=== PATIENT | male | born 1935 | race Caucasian/White ===

== ENCOUNTER 2018-10-19 08:34 | Inpatient (IN) ==
[2018-10-19] MEDS ORDERED: 0.9 % Sodium Chloride 1,000 ML IVC ONE (08:56)
[2018-10-19 09:33] LABS: Basophils % 0.4 %; Eosinophils # 0.2 K/mcL (0.0-0.6); Eosinophils % 2.1 %; Hematocrit 47.4 % (37.5-50.1); Hemoglobin 14.2 g/dL (12.9-16.9); Immature Granulocytes % 0.4 % (0-4); Lymphocytes # 1.3 K/mcL (0.6-4.6); Lymphocytes % 17.5 %; Mean Corpuscular Hemoglobin 30.5 pg (28.0-33.3); Mean Corpuscular Volume 101.7 fL (83.0-100.0); Mean Platelet Volume 10.6 fL (9.4-12.4); Monocytes # 0.5 K/mcL (0.0-1.3); Neutrophils # 5.5 K/mcL (1.6-8.9); Platelet Count 158 K/mcL (140-400); Red Blood Count 4.66 M/mcL (4.19-5.50); Red Cell Distribution Width 17.7 % (11.5-14.5); Segmented Neutrophils % 73.6 %
--- NOTE | 2018-10-19 09:52 | Emergency Department Note ---
Disposition Clinical Impression: Weakness Disposition: Admitted As Inpatient Condition: Good Referrals: Demetris Olivier [Primary Care Provider] - Forms: ED Satisfaction Letter Time of Disposition: 13:02 General Adult HPI - General Chief complaint: ED Dizziness Stated complaint: HARIS Hypotension Time Seen by Provider: 10/19/18 08:40 Source: patient Mode of arrival: private vehicle Limitations: no limitations Nursing Notes Reviewed: Yes Vital Signs Reviewed: Yes - History of Present Illness HPI Narrative: 83-year-old male that was on his we will cardiology appointment this morning when he checked him and inject his blood pressure was low. While they were doing their intake history he told them he had several days of dark and tarry stools. He also reported feeling weak and "without power". Cardiology sent him to the emergency department for further evaluation. Pt reports that he has recently started taking xanax again after not being on it for a few weeks. He reports significant personal stressors with illnesses in his other family members. Pain Scale: 0 - Related Data Home Medications Medication Instructions Recorded Confirmed Carvedilol 12.5 mg PO BID 05/22/18 05/22/18 Digoxin [Lanoxin] 0.125 mg PO DAILY 05/22/18 05/22/18 Donepezil [Aricept] 10 mg PO HS 05/22/18 05/22/18 Finasteride [Proscar] 5 mg PO DAILY 05/22/18 05/22/18 Fluticasone Propionate Nasal 2 spray NS DAILY PRN 05/22/18 05/22/18 [Flonase] Hydrocodone/Acetaminophen [[place] 1 tab PO Q6H PRN 05/22/18 05/22/18 5-325 Tablet] Lisinopril [Zestril] 10 mg PO DAILY 05/22/18 05/22/18 Mupirocin [Bactroban Oint] 22 applic TP TID PRN 05/22/18 05/22/18 Potassium Chloride [K-Tab ER] 10 meq PO DAILY 05/22/18 05/22/18 Simvastatin [Zocor] 80 mg PO DAILY 05/22/18 05/22/18 Previous Rx's Medication Instructions Recorded Aspirin 81 mg PO DAILY #30 tab.chew 05/22/18 Allergies Allergy/AdvReac Type Severity Reaction Status Date / Time No Known Allergies Allergy Verified 05/22/18 11:50 Review of Systems: All systems ED: reviewed and negative except as stated. Constitutional: Denies: fever, chills ENT ED: Denies: ear pain, throat pain Cardiovascular: Denies: chest pain, palpitations Respiratory: Denies: cough, Reports: dyspnea Gastrointestinal: Denies: abdominal pain, nausea, vomiting, diarrhea, constipation Genitourinary: Denies: urgency, dysuria, frequency Musculoskeletal: Denies: back pain, neck pain Integumentary: Denies: rash, abrasion Neurological: Denies: headache, numbness, paresthesias Reports: weakness Psychiatric: Denies: depression Reports: anxiety Endocrine: Denies: fatigue, heat or cold intolerance Hematological/Lymphatic: Denies: easy bleeding, easy bruising Allergic/Immunologic: Denies: facial swelling, urticaria Past Medical History - Past Medical History Attestation: Yes The following information was validated with the patient. Medical history: Reports: atrial fibrillation, CHF, hypertension, other Surgical history: Reports: knee replacement, orthopedic, other, pacemaker Psychiatric history: Reports: anxiety, depression - Social History Smoking Status: Former smoker Smokeless Tobacco Status: Yes Alcohol use: Reports: occasionally Drug use: Reports: none Physical Exam General: No acute distress. Well developed, well nourished. Head: atraumatic, normocephalic. ENT: No conjunctival injection, no scleral icterus, no conjunctival pallor. PERRLA. EOMI. Oropharynx non- erythematous. mucous membranes moist. Neuro: No focal deficits, no speech deficit, no facial droop, mentating well. BUE/BLE Str 5/5. Pulm: Lungs CTAB A/P. No wheezes, rales, ronchi. Cardio: RRR no m/r/g. Chest not tender to palpation. Abd: Soft, non-distended. Normoactive bowel sounds. Non-tender to palpation. No guarding. Non rigid. Extremities: Radial pulses 2+ margy, dorsalis pedis/posterior tibialis 2+ margy. No LE edema. No cyanosis, clubbing. Skin: warm, dry, intact. No rashes. Psych: Appropriate mood and affect. Answers questions appropriately. Cooperative with exam. - General Limitations: no limitations General appearance: alert, in no apparent distress Course Course Narrative: Ddx includes but is not limited to: GIB, hypotension, dehydration, infection Workup will include: 2 large bore IV, cardiac monitoring, EKG, supplemental oxygen, CBC, CMP, troponin, type & screen, hemoccult, CXR Vital Signs Temperature 97.6 F 10/19/18 08:35 Pulse Rate 68 10/19/18 08:35 Respiratory Rate 16 10/19/18 08:35 Blood Pressure 93/62 10/19/18 08:35 O2 Sat by Pulse Oximetry 96 10/19/18 08:35 Temperature 97.6 F 10/19/18 08:35 Pulse Rate 60 10/19/18 12:00 Respiratory Rate 21 10/19/18 12:00 Blood Pressure 137/82 10/19/18 12:00 O2 Sat by Pulse Oximetry 96 10/19/18 12:00 Oxygen Delivery Oxygen Delivery Nasal Cannula Medical Decision Making - MDM Narrative Medical decision making narrative: Patient's lab work did not reveal a leukocytosis, head CT was negative for acute intracranial findings, patient's hemoglobin was over 14. Patient's blood pressure improved after administration of 1 L of normal saline to 137/62. Hemoccult was negative for blood. Patient stated that he was feeling a little better, however he was still feeling somewhat weak. Initially patient wanted to go home however when the nurse went to ambulate him he changed his mind and said "I really would like to figure out why I am so weak." Patient was admitted to the hospitalist doctor Patricia, who agreed to admit the patient to his service.Patient was given an opportunity to ask questions at bedside and all of their concerns were addressed. Patient verbalized understanding and agreement with plan of care. Pt remained stable while in the department. - Medical Records Medical records reviewed: Yes I reviewed the patient's medical records. - Lab Data Lab results reviewed: Yes I reviewed the patient's lab results. Result diagrams: 10/19/18 09:16 10/19/18 09:16 Lab Results 10/19/18 10/19/18 10/19/18 Range/Units 09:16 09:16 09:16 WBC 7.5 (4.3-11.1) K/mcL RBC 4.66 (4.19-5.50) M/mcL Hgb 14.2 (12.9-16.9) g/dL Hct 47.4 (37.5-50.1) % MCV 101.7 H (83.0-100.0) fL MCH 30.5 (28.0-33.3) pg MCHC 30.0 L (31.6-35.5) g/dL RDW 17.7 H (11.5-14.5) % Plt Count 158 (140-400) K/mcL MPV 10.6 (9.4-12.4) fL Immature Gran % 0.4 (0-4) % Seg Neutrophils % 73.6 % Lymphocytes % 17.5 % Monocytes % 6.0 % Eosinophils % 2.1 % Basophils % 0.4 % Neutrophils # 5.5 (1.6-8.9) K/mcL Lymphocytes # 1.3 (0.6-4.6) K/mcL Monocytes # 0.5 (0.0-1.3) K/mcL Eosinophils # 0.2 (0.0-0.6) K/mcL Basophils # 0.0 (0.0-0.2) K/mcL PT (9.4-12.1) Seconds INR APTT (26.0-36.0) Seconds Sodium 142 (136-145) mEq/L Potassium 4.5 (3.5-5.1) mEq/L Chloride 99 (98-107) mEq/L Carbon Dioxide 35 H (23-29) mEq/L BUN 42 H (8-23) mg/dL Creatinine 1.30 (0.70-1.30) mg/dL Est GFR ( Amer) > 60 (> 60) Est GFR (Non-Af Amer) 53 L (> 60) BUN/Creatinine Ratio 32 H (6-26) Glucose 115 H (70-105) mg/dL Calculated Osmolality 305 H (280-300) Lactic Acid 1.5 (0.5-2.2) mmol/L Calcium 9.6 (8.6-10.3) mg/dL Magnesium 2.2 (1.6-2.6) mg/dL Total Bilirubin 0.8 (0.3-1.0) mg/dL AST 13 (13-39) Units/L ALT 14 (7-52) Units/L Alkaline Phosphatase 89 (34-104) Units/L Troponin I 0.03 (< 0.04) ng/mL Serum Total Protein 6.6 (6.4-8.9) g/dL Albumin 4.1 (3.5-5.7) g/dL Globulin 2.5 (2.4-3.5) g/dL Albumin/Globulin Ratio 1.6 (1.1-2.2) Stool Occult Bld Scrn (Negative) Digoxin 1.5 (0.8-2.0) ng/mL Blood Type Antibody Screen 10/19/18 10/19/18 10/19/18 Range/Units 09:16 09:16 10:31 WBC (4.3-11.1) K/mcL RBC (4.19-5.50) M/mcL Hgb (12.9-16.9) g/dL Hct (37.5-50.1) % MCV (83.0-100.0) fL MCH (28.0-33.3) pg MCHC (31.6-35.5) g/dL RDW (11.5-14.5) % Plt Count (140-400) K/mcL MPV (9.4-12.4) fL Immature Gran % (0-4) % Seg Neutrophils % % Lymphocytes % % Monocytes % % Eosinophils % % Basophils % % Neutrophils # (1.6-8.9) K/mcL Lymphocytes # (0.6-4.6) K/mcL Monocytes # (0.0-1.3) K/mcL Eosinophils # (0.0-0.6) K/mcL Basophils # (0.0-0.2) K/mcL PT 18.8 H (9.4-12.1) Seconds INR 1.7 APTT 38.3 H (26.0-36.0) Seconds Sodium (136-145) mEq/L Potassium (3.5-5.1) mEq/L Chloride (98-107) mEq/L Carbon Dioxide (23-29) mEq/L BUN (8-23) mg/dL Creatinine (0.70-1.30) mg/dL Est GFR ( Amer) (> 60) Est GFR (Non-Af Amer) (> 60) BUN/Creatinine Ratio (6-26) Glucose (70-105) mg/dL Calculated Osmolality (280-300) Lactic Acid (0.5-2.2) mmol/L Calcium (8.6-10.3) mg/dL Magnesium (1.6-2.6) mg/dL Total Bilirubin (0.3-1.0) mg/dL AST (13-39) Units/L ALT (7-52) Units/L Alkaline Phosphatase (34-104) Units/L Troponin I (< 0.04) ng/mL Serum Total Protein (6.4-8.9) g/dL Albumin (3.5-5.7) g/dL Globulin (2.4-3.5) g/dL Albumin/Globulin Ratio (1.1-2.2) Stool Occult Bld Scrn Negative (Negative) Digoxin (0.8-2.0) ng/mL Blood Type O POSITIVE Antibody Screen NEGATIVE - Radiology Data Radiology results reviewed: Yes I reviewed the patient's radiology results. Head CT 10/19/18 11:01 IMPRESSION: No acute intracranial abnormality. D/ / Magan Chadwick MD / Magan Chadwick MD Interpreting Provider: Magan Chadwick MD Chest X-Ray 10/19/18 12:01 IMPRESSION: Redemonstration of elevated left hemidiaphragm. Worsened left basilar opacity from prior exam may reflect worsening left basilar atelectasis or infiltrate. A small left pleural effusion not excluded. Clinical correlation and continued follow-up suggested. Stable cardiomegaly. D/ / 10/19/2018 12:17:01 Shahram Morris MD / mandi Interpreting Provider: Shahram Morris MD - EKG Data EKG #1 EKG attestation: Yes I reviewed and interpreted this EKG. EKG results narrative: HR 70, rhythm ventricular paced rhythm, axis RAD. LA 62, QRS 146, QTc 455. ST elevation in V2-V3, but only 3.5mm, which does not meet Sgarbossa's criteria for paced rhythms for clinically significant ST elevation.
[2018-10-19 09:55] LABS: Alanine Aminotransferase 14 Units/L (7-52); Albumin 4.1 g/dL (3.5-5.7); Alkaline Phosphatase 89 Units/L (34-104); Aspartate Amino Transferase 13 Units/L (13-39); Bilirubin,Total 0.8 mg/dL (0.3-1.0); Calcium 9.6 mg/dL (8.6-10.3); Carbon Dioxide 35 mEq/L (23-29); Chloride 99 mEq/L (98-107); Glucose 115 mg/dL (70-105); Magnesium 2.2 mg/dL (1.6-2.6); Potassium 4.5 mEq/L (3.5-5.1); Sodium 142 mEq/L (136-145)
[2018-10-19 09:56] LABS: Albumin/Globulin Ratio 1.6 (1.1-2.2); BUN/Creatinine Ratio 32 (6-26); Blood Urea Nitrogen 42 mg/dL (8-23); Globulin 2.5 g/dL (2.4-3.5); Osmolality,Calculated 305 (280-300); Total Protein 6.6 g/dL (6.4-8.9); eGFR For Non-African Americans 53 (> 60)
--- NOTE | 2018-10-19 09:58 | Emergency Department Note ---
Disposition Clinical Impression: Weakness Disposition: Admitted As Inpatient Condition: Fair Referrals: Demetris Olivier [Primary Care Provider] - Forms: ED Satisfaction Letter General Adult HPI - General Chief complaint: ED Dizziness Stated complaint: HARIS Hypotension Time Seen by Provider: 10/19/18 08:40 Source: patient Limitations: no limitations Nursing Notes Reviewed: Yes Vital Signs Reviewed: Yes - History of Present Illness Pain Scale: 0 - Related Data Home Medications Medication Instructions Recorded Confirmed Carvedilol 12.5 mg PO BID 05/22/18 05/22/18 Digoxin [Lanoxin] 0.125 mg PO DAILY 05/22/18 05/22/18 Donepezil [Aricept] 10 mg PO HS 05/22/18 05/22/18 Finasteride [Proscar] 5 mg PO DAILY 05/22/18 05/22/18 Fluticasone Propionate Nasal 2 spray NS DAILY PRN 05/22/18 05/22/18 [Flonase] Hydrocodone/Acetaminophen [[place] 1 tab PO Q6H PRN 05/22/18 05/22/18 5-325 Tablet] Lisinopril [Zestril] 10 mg PO DAILY 05/22/18 05/22/18 Mupirocin [Bactroban Oint] 22 applic TP TID PRN 05/22/18 05/22/18 Potassium Chloride [K-Tab ER] 10 meq PO DAILY 05/22/18 05/22/18 Simvastatin [Zocor] 80 mg PO DAILY 05/22/18 05/22/18 Previous Rx's Medication Instructions Recorded Aspirin 81 mg PO DAILY #30 tab.chew 05/22/18 Allergies Allergy/AdvReac Type Severity Reaction Status Date / Time No Known Allergies Allergy Verified 05/22/18 11:50 Past Medical History - Past Medical History Medical history: Reports: atrial fibrillation, CHF, hypertension, other Surgical history: Reports: knee replacement, orthopedic, other, pacemaker Psychiatric history: Reports: anxiety, depression - Social History Smoking Status: Former smoker Smokeless Tobacco Status: Yes Alcohol use: Reports: occasionally Drug use: Reports: none Physical Exam - General Limitations: no limitations General appearance: alert, in no apparent distress Course Vital Signs Temperature 97.6 F 10/19/18 08:35 Pulse Rate 68 10/19/18 08:35 Respiratory Rate 16 10/19/18 08:35 Blood Pressure 93/62 10/19/18 08:35 O2 Sat by Pulse Oximetry 96 10/19/18 08:35 Temperature 97.6 F 10/19/18 08:35 Pulse Rate 60 10/19/18 12:00 Respiratory Rate 21 10/19/18 12:00 Blood Pressure 137/82 10/19/18 12:00 O2 Sat by Pulse Oximetry 96 10/19/18 12:00 Oxygen Delivery Oxygen Delivery Nasal Cannula Medical Decision Making - Lab Data Result diagrams: 10/19/18 09:16 10/19/18 09:16 Lab Results 10/19/18 10/19/18 10/19/18 Range/Units 09:16 09:16 09:16 WBC 7.5 (4.3-11.1) K/mcL RBC 4.66 (4.19-5.50) M/mcL Hgb 14.2 (12.9-16.9) g/dL Hct 47.4 (37.5-50.1) % MCV 101.7 H (83.0-100.0) fL MCH 30.5 (28.0-33.3) pg MCHC 30.0 L (31.6-35.5) g/dL RDW 17.7 H (11.5-14.5) % Plt Count 158 (140-400) K/mcL MPV 10.6 (9.4-12.4) fL Immature Gran % 0.4 (0-4) % Seg Neutrophils % 73.6 % Lymphocytes % 17.5 % Monocytes % 6.0 % Eosinophils % 2.1 % Basophils % 0.4 % Neutrophils # 5.5 (1.6-8.9) K/mcL Lymphocytes # 1.3 (0.6-4.6) K/mcL Monocytes # 0.5 (0.0-1.3) K/mcL Eosinophils # 0.2 (0.0-0.6) K/mcL Basophils # 0.0 (0.0-0.2) K/mcL PT (9.4-12.1) Seconds INR APTT (26.0-36.0) Seconds Sodium 142 (136-145) mEq/L Potassium 4.5 (3.5-5.1) mEq/L Chloride 99 (98-107) mEq/L Carbon Dioxide 35 H (23-29) mEq/L BUN 42 H (8-23) mg/dL Creatinine 1.30 (0.70-1.30) mg/dL Est GFR ( Amer) > 60 (> 60) Est GFR (Non-Af Amer) 53 L (> 60) BUN/Creatinine Ratio 32 H (6-26) Glucose 115 H (70-105) mg/dL Calculated Osmolality 305 H (280-300) Lactic Acid 1.5 (0.5-2.2) mmol/L Calcium 9.6 (8.6-10.3) mg/dL Magnesium 2.2 (1.6-2.6) mg/dL Total Bilirubin 0.8 (0.3-1.0) mg/dL AST 13 (13-39) Units/L ALT 14 (7-52) Units/L Alkaline Phosphatase 89 (34-104) Units/L Troponin I 0.03 (< 0.04) ng/mL Serum Total Protein 6.6 (6.4-8.9) g/dL Albumin 4.1 (3.5-5.7) g/dL Globulin 2.5 (2.4-3.5) g/dL Albumin/Globulin Ratio 1.6 (1.1-2.2) Stool Occult Bld Scrn (Negative) Digoxin 1.5 (0.8-2.0) ng/mL Blood Type Antibody Screen 10/19/18 10/19/18 10/19/18 Range/Units 09:16 09:16 10:31 WBC (4.3-11.1) K/mcL RBC (4.19-5.50) M/mcL Hgb (12.9-16.9) g/dL Hct (37.5-50.1) % MCV (83.0-100.0) fL MCH (28.0-33.3) pg MCHC (31.6-35.5) g/dL RDW (11.5-14.5) % Plt Count (140-400) K/mcL MPV (9.4-12.4) fL Immature Gran % (0-4) % Seg Neutrophils % % Lymphocytes % % Monocytes % % Eosinophils % % Basophils % % Neutrophils # (1.6-8.9) K/mcL Lymphocytes # (0.6-4.6) K/mcL Monocytes # (0.0-1.3) K/mcL Eosinophils # (0.0-0.6) K/mcL Basophils # (0.0-0.2) K/mcL PT 18.8 H (9.4-12.1) Seconds INR 1.7 APTT 38.3 H (26.0-36.0) Seconds Sodium (136-145) mEq/L Potassium (3.5-5.1) mEq/L Chloride (98-107) mEq/L Carbon Dioxide (23-29) mEq/L BUN (8-23) mg/dL Creatinine (0.70-1.30) mg/dL Est GFR ( Amer) (> 60) Est GFR (Non-Af Amer) (> 60) BUN/Creatinine Ratio (6-26) Glucose (70-105) mg/dL Calculated Osmolality (280-300) Lactic Acid (0.5-2.2) mmol/L Calcium (8.6-10.3) mg/dL Magnesium (1.6-2.6) mg/dL Total Bilirubin (0.3-1.0) mg/dL AST (13-39) Units/L ALT (7-52) Units/L Alkaline Phosphatase (34-104) Units/L Troponin I (< 0.04) ng/mL Serum Total Protein (6.4-8.9) g/dL Albumin (3.5-5.7) g/dL Globulin (2.4-3.5) g/dL Albumin/Globulin Ratio (1.1-2.2) Stool Occult Bld Scrn Negative (Negative) Digoxin (0.8-2.0) ng/mL Blood Type O POSITIVE Antibody Screen NEGATIVE Attestation Statement - Attestation Attestation: I have seen this patient with the resident physician, I have personally evaluated this patient. I had reviewed the chart and document dictation by the resident physician and aM in agreement with the information documented by the resident physician. Please see documentation by the resident physician for complete chart including past medical history, family medical history, review of systems, current history and physical and laboratory and imaging studies. I was present for all procedures, provided direct supervision for all procedures, was present for the entirety of all procedures and provided direct guidance during the procedures. Please see documentation by the resident physician for any procedures performed. 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 He endorses that he has had some dark-appearing stool, and he is on Coumadin is not grossly bloody stool. The patient denies headache neck pain chest pain abdominal pain nausea or vomiting he states that he just feels off and states that it is more just a fatigue he denies any unilateral numbness or weakness. He denies any urinary changes of urgency frequency has not scattered dysuria he denies any acute lower extremity edema. On exam is alert awake talking oriented in no acute distress, cranial nerves are intact, oropharynx is normal, there is no conjunctival pallor, mucous membranes are normal. Cardiovascular regular rate and rhythm, 2/6 systolic murmur no rubs or gallops, no obvious JVD, lungs are clear abdomen soft and nontender. Lower extremities reveal trace bilateral lower extremity edema, without unilateral swelling palpable cord or calf tenderness or clinical evidence of DVT, neurologic exam revealed no focal neurologic findings, cranial nerves are intact, strength sensation and reflexes are intact. EKG was electronic paced rhythm, with compared to prior EKG no significant change in relation to rhythm, there is borderline ST segment elevation/early repolarization in V2 and V3, does not meet true criteria for acute ST segment elevation myocardial infarction within a chronic left bundle-branch block pattern, and patient has no chest pain no shortness of breath no palpitations, do not suspect acute STEMI at this time. Basic laboratory studies were ordered. Rectal examination was performed. Hemoccult was negative. Basic laboratory studies were all within acceptable limits, without acute anemia without acute renal failure, digoxin level was 1.5, cardiac enzymes were negative. Head CT was ordered secondary to his weakness which showed no acute findings. Secondary to this patient's symptoms of weakness will recommend admission to the hospital for further evaluation as this is not the first time recently he has been to the emergency department for persistent episodes thereof, and cardiology sent in here for further evaluation and likely admission, however this will be discussed with the patient and the family, however reviewed his chart, within the last week he was seen in the emergency apart for similar episode with associated significant hypotension, and was felt to potentially be medication related at that time, as well as potentially anxiety related, in regards to symptoms he continues to have worsening symptoms, we will discuss consideration of admission with the family. family and patient agreeable for admit
[2018-10-19 10:08] LABS: Activated Partial Thrombo Time 38.3 Seconds (26.0-36.0); INR 1.7; Prothrombin Time 18.8 Seconds (9.4-12.1)
[2018-10-19 11:16] LABS: Troponin I 0.03 ng/mL (< 0.04)
[2018-10-19 11:21] LABS: Digoxin 1.5 ng/mL (0.8-2.0)
--- NOTE | 2018-10-19 11:48 | Electrocardiograph Report ---
[address] [address] Test Date: 2018-10-19 Pat Name: Carlos Catherine Department: EXAM5 Room: Gender: M [employer]: : [id number] Requested By: Sue Gallegos Order Number: [id number] Reading MD: Melecio Gibbs Measurements Intervals [place] Rate: 70 P: 0 ND: 62 QRS: -79 QRSD: 146 T: 34 QT: 421 QTc: 455 Interpretive Statements Ventricular-paced rhythm No further analysis attempted due to paced rhythm Electronically Signed On 10-19-2018 11:46:23 EDT by Melecio Gibbs
[2018-10-19] MEDS ORDERED: Naloxone 0.4 MG/ML INJ IVP PRN (14:09)
[2018-10-19] MEDS ORDERED: 0.9 % Sodium Chloride 1,000 ML IVC SCH (14:15)
[2018-10-19] MEDS: Azithromycin 500 MG in D5% in Water 250 ML IVPB SCH (15:42)
[2018-10-19] MEDS ORDERED: Colchicine 0.6 MG TABLET PO PRN (15:43)
[2018-10-19] MEDS: cefTRIAXone 1,000 MG in Water for inj. (sterile) 20 ML 10 ML IVP SCH (15:45)
--- NOTE | 2018-10-19 15:54 | Internal Med History&Physical ---
Date of Encounter: 10/19/18 Time of Encounter: 15:00 Internal Medicine - H&P: HPI Chief complaint: Weakness for a couple of days History of present illness: Mr. Catherine is a 83 year old male with pmh of diastolic CHF, afib, gout, olecrannon bursitis presenting with complaints of weakness , fatigue and dizziness for about a month. 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 he reports having doubled the dosing of his lasix to 80mg BID for the past one month to avoid weight gain. He admits to dizziness and weakness, denies any fevers, chills , coughing or fatigue. He reports dark stools, but stool occult was negative and hemoglobin was 14 In the ER, an xray was done showing a lung opacity and he is being admitted for weakness and possible pneumonia Past Med Surg Social Fam HX - Past Medical History Medical history: atrial fibrillation, CHF, hypertension, other Psychiatric history: anxiety, depression - Past Surgical History Surgical History: knee replacement, orthopedic, other, pacemaker Additional surgical history: Rt Shoulder replacement - Social History Smoking Status: Former smoker Smokeless Tobacco Status: Yes Alcohol use: occasionally Drug use: none - Family History Father Living Status: Mother Living Status: Internal Medicine - H&P: Meds Carvedilol 12.5 mg PO BID 05/22/18 [History] Digoxin [Lanoxin] 0.125 mg PO DAILY 05/22/18 [History] Donepezil [Aricept] 10 mg PO HS 05/22/18 [History] Finasteride [Proscar] 5 mg PO DAILY 05/22/18 [History] Fluticasone Propionate Nasal [Flonase] 2 spray NS DAILY 05/22/18 [History] Hydrocodone/Acetaminophen [[place] 5-325 Tablet] 1 tab PO Q6H PRN 05/22/18 [History] Lisinopril [Zestril] 10 mg PO DAILY 05/22/18 [History] Mupirocin [Bactroban Oint] 1 applic TP TID PRN 05/22/18 [History] Potassium Chloride [K-Tab ER] 10 meq PO HS 05/22/18 [History] Simvastatin [Zocor] 80 mg PO HS 05/22/18 [History] ALPRAZolam [Xanax 0.25 MG Tablet] 0.25 mg PO BID 10/19/18 [History] Allopurinol [Zyloprim 100 MG] 100 mg PO DAILY 10/19/18 [History] Aspirin [Adult Aspirin Regimen] 81 mg PO DAILY 10/19/18 [History] Colchicine [Colcrys] 0.6 mg PO AD PRN 10/19/18 [History] Escitalopram [Lexapro] 10 mg PO DAILY 10/19/18 [History] FluocinoNIDE 0.05% CRM [Lidex] 1 appl TP BID PRN 10/19/18 [History] Furosemide [Lasix] 80 mg PO BID 10/19/18 [History] Warfarin [Coumadin] 2.5 mg PO SUTUTHSA 10/19/18 [History] Warfarin [Coumadin] 5 mg PO MOWEFR 10/19/18 [History] Allergy/AdvReac Type Severity Reaction Status Date / Time No Known Allergies Allergy Verified 10/19/18 13:46 All Systems PM: A 10-system review of systems was performed and is negative for pertinent findings except as documented above in the HPI. - Constitutional Constitutional: lethargy, no chills, no fever(s), no night sweats - EENT Eyes: no change in vision, no discharge, no pain, no photophobia Ears: no ear discharge, no ear pain, no tinnitus Nose, mouth and throat: no dysphagia, no nasal discharge, no neck pain, no sore throat - Cardiovascular Cardiovascular ROS IM: no chest pain, no diaphoresis, no dyspnea, no lightheadedness, no palpitations, no syncope - Respiratory Respiratory: no cough, no dyspnea, no wheezing, no excessive phlegm production - Gastrointestinal Gastrointestinal: no abdominal pain, no diarrhea, no hematemesis, no hematochezia, no melena, no nausea, no vomiting - Musculoskeletal Musculoskeletal ROS IM: no numbness, no tingling - Integumentary Integumentary IM: no rash, no unusual bruising - Neurological Neurological ROS: weakness, no confusion, no convulsions, no focal weakness, no numbness, no tingling, no tremor(s) - Hematologic/Lymphatic Hematologic/Lymphatic: no easy bruising - Constitutional Vitals: Temp Pulse Resp BP Pulse Ox 97.5 F L 60 14 109/61 95 10/19/18 15:22 10/19/18 15:22 10/19/18 15:22 10/19/18 15:22 10/19/18 15:22 Exam: NAD - Head Head exam: Present: atraumatic, normocephalic - Eye Eye exam: Present: PERRL, conjuntiva pink, sclera anicteric Pupils: Present: PERRL - Neck Neck exam general surgery: Present: supple, trachea midline. Absent: lymphadenopathy - Respiratory Respiratory exam: Present: CTAB. Absent: accessory muscle use, rales, rhonchi, wheezes - Cardiovascular Cardiovascular exam: Present: RRR, +S1, +S2. Absent: diastolic murmur, gallop, rubs, systolic murmur - GI/Abdominal GI/Abdominal exam: Present: normal bowel sounds, soft, no peritoneal signs. Absent: distended, tenderness - Extremities Exam Extremities exam: Present: warm, radial pulses palpable and symmetrical. Absent: calf tenderness, cyanotic, pedal edema - Neurological Exam Neurological exam: Present: CN II-XII intact, oriented X3, no focal deficits. Absent: pronater drift, facial droop, speech deficit - Skin Skin exam: Present: dry, intact Internal Med - H&P Results - Labs CBC & Chem 7: 10/19/18 09:16 10/19/18 09:16 Labs: Short CBC 10/19/18 Range/Units 09:16 WBC 7.5 (4.3-11.1) K/mcL Hgb 14.2 (12.9-16.9) g/dL Hct 47.4 (37.5-50.1) % Plt Count 158 (140-400) K/mcL Neutrophils # 5.5 (1.6-8.9) K/mcL BMP 10/19/18 09:16 Sodium 142 Potassium 4.5 Chloride 99 Carbon Dioxide 35 H BUN 42 H Creatinine 1.30 Glucose 115 H Calcium 9.6 Cardiac Enzymes 10/19/18 Range/Units 09:16 Troponin I 0.03 (< 0.04) ng/mL Liver Function 10/19/18 Range/Units 09:16 Total Bilirubin 0.8 (0.3-1.0) mg/dL AST 13 (13-39) Units/L ALT 14 (7-52) Units/L Alkaline Phosphatase 89 (34-104) Units/L Albumin 4.1 (3.5-5.7) g/dL - Impressions ITS Impressions Head CT 10/19/18 11:01 IMPRESSION: No acute intracranial abnormality. D/ / Magan Chadwick MD / Magan Chadwick MD Interpreting Provider: Magan Chadwick MD Chest X-Ray 10/19/18 12:01 IMPRESSION: Redemonstration of elevated left hemidiaphragm. Worsened left basilar opacity from prior exam may reflect worsening left basilar atelectasis or infiltrate. A small left pleural effusion not excluded. Clinical correlation and continued follow-up suggested. Stable cardiomegaly. D/ / 10/19/2018 12:17:01 Shahram Morris MD / mandi Interpreting Provider: Shahram Morris MD - Assessment and Plan (1) Weakness Current Visit: Yes Status: Acute Assessment and plan: Pt has weaknes, dizziness and hypotension possibly secondary to a combination of poor oral intake, dehydration and polypharmacy He admits to doubling his dose of lasix to 60mg BID in last one month. received a bolus of normal saline in ER and feels better Will hold off further IV fluid hydration, encourage oral hydration Hold lasix and lisnopril. Discussed with patient , will cut back to lasix 40mg BID on discharge or as indicated Patient's home meds also need to be reviewed to see if he needs to beon so many meds (2) Atrial fibrillation Current Visit: Yes Status: Chronic Assessment and plan: Continue warfarin and carvedilol Qualifiers: Atrial fibrillation type: paroxysmal Qualified Code(s): I48.0 - Paroxysmal atrial fibrillation (3) Chronic CHF Current Visit: Yes Status: Chronic Assessment and plan: No acute exacerbation. Lasix on hold and oral hydration encouraged Qualifiers: Heart failure type: unspecified Qualified Code(s): I50.9 - Heart failure, unspecified (4) Community acquired bacterial pneumonia Current Visit: Yes Status: Acute Assessment and plan: Query community acquired pneumonia. Pt has weakness and worsening left lung opacity Will cover empirically with ceftriaxone and azithromycin (5) Olecranon bursitis, left elbow Current Visit: Yes Status: Chronic Assessment and plan: Plan for surgery when patient is optimized (6) DVT prophylaxis Current Visit: Yes Status: Acute Assessment and plan: On warfarin - Time Spent With Patient Total time spent is greater than 50% in coordination of care (as documented) at patient's floor/unit and/or counseling patient:
[2018-10-19] MEDS ORDERED: Warfarin perPT PO PRN (18:00)
[2018-10-19] MEDS ORDERED: *HR* Warfarin 2.5 MG TABLET PO ONE (18:00)
[2018-10-19] MEDS: ALPRAZolam 0.25 MG TABLET PO SCH (20:46)
[2018-10-20 02:00] LABS: Basophils % 0.3 %; Eosinophils # 0.1 K/mcL (0.0-0.6); Eosinophils % 1.1 %; Hematocrit 45.5 % (37.5-50.1); Hemoglobin 13.6 g/dL (12.9-16.9); Immature Granulocytes % 0.4 % (0-4); Lymphocytes # 1.6 K/mcL (0.6-4.6); Lymphocytes % 21.7 %; Mean Corpuscular HGB Conc 29.9 g/dL (31.6-35.5); Mean Corpuscular Hemoglobin 30.6 pg (28.0-33.3); Mean Corpuscular Volume 102.2 fL (83.0-100.0); Mean Platelet Volume 10.9 fL (9.4-12.4); Monocytes # 0.7 K/mcL (0.0-1.3); Monocytes % 9.7 %; Platelet Count 144 K/mcL (140-400); Red Blood Count 4.45 M/mcL (4.19-5.50); Red Cell Distribution Width 17.3 % (11.5-14.5); Segmented Neutrophils % 66.8 %
[2018-10-20 06:54] LABS: BUN/Creatinine Ratio 36 (6-26); Blood Urea Nitrogen 47 mg/dL (8-23); Calcium 8.9 mg/dL (8.6-10.3); Carbon Dioxide 36 mEq/L (23-29); Chloride 104 mEq/L (98-107); Glucose 114 mg/dL (70-105); Magnesium 2.4 mg/dL (1.6-2.6); Osmolality,Calculated 309 (280-300); Phosphorous 5.3 mg/dL (2.7-4.5); Potassium 4.6 mEq/L (3.5-5.1); Sodium 143 mEq/L (136-145); eGFR For Non-African Americans 52 (> 60)
[2018-10-20] MEDS: ALPRAZolam 0.25 MG TABLET PO SCH ×2 (09:35→20:15)
[2018-10-20] MEDS: cefTRIAXone 1,000 MG in Water for inj. (sterile) 20 ML 10 ML IVP SCH (09:35)
[2018-10-20] MEDS: Aspirin Enteric Coated 81 MG Tablet PO SCH (09:35)
[2018-10-20] MEDS: *HR* Digoxin 0.125 MG TABLET PO SCH (09:35)
[2018-10-20] MEDS: Finasteride 5 MG TABLET PO SCH (09:35)
[2018-10-20] MEDS: *HR* HYDROcodone/Acet 5/325 mg TABLET PO PRN ×2 (12:03→20:18)
[2018-10-20] MEDS: Azithromycin 500 MG in D5% in Water 250 ML IVPB SCH (14:44)
--- NOTE | 2018-10-20 14:47 | Internal Med Progress Note ---
Hospitalist Progress Note - Encounter Date of Encounter: 10/21/18 Time of Encounter: 14:44 - Subjective Interval History: It was seen and examined at bedside, patient does complain of some weakness I did have to assist the patient up to bedside for assessment. He is requiring oxygen supplementation at this time. The patient evaluated by PT and 6 minute walk for oxygen qualification. Discussed with the patient who verbalized understanding. - Exam Vitals: Temp Pulse Resp BP Pulse Ox 97.6 F 63 16 107/65 95 10/20/18 11:16 10/20/18 12:24 10/20/18 11:16 10/20/18 12:24 10/20/18 11:16 Exam: NAD - Assessment and Plan (1) Chronic CHF Current Visit: Yes Status: Chronic Assessment and Plan: No acute exacerbation. Lasix on hold and oral hydration encouraged (2) Olecranon bursitis, left elbow Current Visit: Yes Status: Chronic Assessment and Plan: Plan for surgery when patient is optimized (3) DVT prophylaxis Current Visit: Yes Status: Acute Assessment and Plan: On warfarin (4) Atrial fibrillation Current Visit: Yes Status: Chronic Assessment and Plan: Continue warfarin and carvedilol (5) Weakness Current Visit: Yes Status: Acute Assessment and Plan: Pt has weaknes, dizziness and hypotension possibly secondary to a combination of poor oral intake, dehydration and polypharmacy He admits to doubling his dose of lasix to 60mg BID in last one month. received a bolus of normal saline in ER and feels better Will hold off further IV fluid hydration, encourage oral hydration Hold lasix and lisnopril. Discussed with patient , will cut back to lasix 40mg BID on discharge or as indicated Patient's home meds also need to be reviewed to see if he needs to beon so many meds pt/ot consult (6) Community acquired bacterial pneumonia Current Visit: Yes Status: Acute Assessment and Plan: Query community acquired pneumonia. Pt has weakness and worsening left lung opacity Will cover empirically with ceftriaxone and azithromycin - Time Spent with Patient Total time spent is greater than 50% in coordination of care (as documented) at patient's floor/unit and/or counseling patient: Internal Medicine: Result - Labs CBC & Chem 7: 10/20/18 01:32 10/20/18 06:22 Labs: Short CBC 10/20/18 Range/Units 01:32 WBC 7.5 (4.3-11.1) K/mcL Hgb 13.6 (12.9-16.9) g/dL Hct 45.5 (37.5-50.1) % Plt Count 144 (140-400) K/mcL Neutrophils # 5.0 (1.6-8.9) K/mcL BMP 10/20/18 06:22 Sodium 143 Potassium 4.6 Chloride 104 Carbon Dioxide 36 H BUN 47 H Creatinine 1.31 H Glucose 114 H Calcium 8.9 - ABG Interpretation ABG results: PT/INR, D-dimer PT 22.0 Seconds (9.4-12.1) H 10/20/18 01:32 Consult Discharge Plan - Plan Referrals: Demetris Olivier [Primary Care Provider] - (Appointment has been requested.) (1) Chronic CHF Qualifiers: Heart failure type: unspecified Qualified Code(s): I50.9 - Heart failure, unspecified (4) Atrial fibrillation Qualifiers: Atrial fibrillation type: paroxysmal Qualified Code(s): I48.0 - Paroxysmal atrial fibrillation
[2018-10-20] MEDS ORDERED: *HR* Warfarin 5 MG TABLET PO ONE (18:00)
[2018-10-21 04:24] LABS: INR 2.4; Prothrombin Time 26.5 Seconds (9.4-12.1)
[2018-10-21] MEDS: Finasteride 5 MG TABLET PO SCH ×2 (07:50→07:52)
[2018-10-21] MEDS: *HR* HYDROcodone/Acet 5/325 mg TABLET PO PRN (07:52)
[2018-10-21] MEDS: Aspirin Enteric Coated 81 MG Tablet PO SCH (07:52)
[2018-10-21] MEDS: ALPRAZolam 0.25 MG TABLET PO SCH (07:52)
[2018-10-21] MEDS: cefTRIAXone 1,000 MG in Water for inj. (sterile) 20 ML 10 ML IVP SCH (07:53)
[2018-10-21] MEDS: *HR* Digoxin 0.125 MG TABLET PO SCH (07:53)
--- NOTE | 2018-10-21 10:59 | Discharge Summary ---
Orders not resulted at time of discharge: Pending orders 10/19/18 16:38 Culture,Blood [BC] Routine 10/21/18 10:57 Chem 7 [Basic Metabolic Panel] Routine 10/22/18 04:00 CBC [Complete Blood Count] [HEME] AM 0400 Chem 7 [Basic Metabolic Panel] AM 0400 Prothrombin Time INR [COAG] AM 0400 10/23/18 04:00 Prothrombin Time INR [COAG] AM 0400 10/24/18 04:00 Prothrombin Time INR [COAG] AM 0400 Date of Encounter: 10/21/18 Time of Encounter: 10:59 - Discharge Diagnosis (1) Chronic CHF Priority: Secondary Status: Chronic Qualifiers: Heart failure type: unspecified Qualified Code(s): I50.9 - Heart failure, unspecified (2) Olecranon bursitis, left elbow Priority: Secondary Status: Chronic (3) Atrial fibrillation Priority: Secondary Status: Chronic Qualifiers: Atrial fibrillation type: paroxysmal Qualified Code(s): I48.0 - Paroxysmal atrial fibrillation (4) Weakness Priority: Secondary Status: Acute (5) Community acquired bacterial pneumonia Priority: Primary Status: Acute Hospital course: Mr. 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 He reports having doubled the dosing of his lasix to 80mg BID for the past one month to avoid weight gain. In the ER, an xray was done showing a lung opacity and he is being admitted for weakness and possible pneumonia. Lab work did not reveal any leukocytosis- No fevers during admission His lasix was held as well as lisinopril. He was given IVF. He does admit that he is wear O2 at all times but only wears it at night . His sats are stable on 2l NC. He was evaluated by PT/OT with no needs identified hemoglobin has been stable Hemoccult stool was negative no hematochezia. He feels much improved and has been ambulating without any difficulty or SOB. orthostatic BP has been stable .Advised patient to take medications as prescribed and to follow up with PCP since tis provider knows him best and can adjust medications as needed. We will cont to hold lisinopril and resume lasix at a lower dose. Advised patient to weigh himself daily and keep a log as well as monitor BP daily. He verbalized understanding He is hemodynamically stable at this time an ready for discharge - Time Spent with Patient Total time spent providing and/or coordinating discharge services: - Discharge Medications Prescriptions: New Furosemide [Lasix] 40 mg PO BID #60 tablet Continued Finasteride [Proscar] 5 mg PO DAILY Mupirocin [Bactroban Oint] 1 applic TP TID PRN PRN Reason: Skin Irritation Fluticasone Propionate Nasal [Flonase] 2 spray NS DAILY Hydrocodone/Acetaminophen [[place] 5-325 Tablet] 1 tab PO Q6H PRN PRN Reason: Pain Simvastatin [Zocor] 80 mg PO HS Donepezil [Aricept] 10 mg PO HS Digoxin [Lanoxin] 0.125 mg PO DAILY Carvedilol 12.5 mg PO BID Allopurinol [Zyloprim 100 MG] 100 mg PO DAILY ALPRAZolam [Xanax 0.25 MG Tablet] 0.25 mg PO BID Aspirin [Adult Aspirin Regimen] 81 mg PO DAILY Warfarin [Coumadin] 2.5 mg PO SUTUTHSA Warfarin [Coumadin] 5 mg PO MOWEFR Escitalopram [Lexapro] 10 mg PO DAILY FluocinoNIDE 0.05% CRM [Lidex] 1 appl TP BID PRN PRN Reason: Rash Colchicine [Colcrys] 0.6 mg PO AD PRN PRN Reason: GOUT ATTACK Discontinued Potassium Chloride [K-Tab ER] 10 meq PO HS Lisinopril [Zestril] 10 mg PO DAILY Furosemide [Lasix] 80 mg PO BID Home Medications: Carvedilol 12.5 mg PO BID 05/22/18 [History] Digoxin [Lanoxin] 0.125 mg PO DAILY 05/22/18 [History] Donepezil [Aricept] 10 mg PO HS 05/22/18 [History] Finasteride [Proscar] 5 mg PO DAILY 05/22/18 [History] Fluticasone Propionate Nasal [Flonase] 2 spray NS DAILY 05/22/18 [History] Hydrocodone/Acetaminophen [[place] 5-325 Tablet] 1 tab PO Q6H PRN 05/22/18 [History] Mupirocin [Bactroban Oint] 1 applic TP TID PRN 05/22/18 [History] Simvastatin [Zocor] 80 mg PO HS 05/22/18 [History] ALPRAZolam [Xanax 0.25 MG Tablet] 0.25 mg PO BID 10/19/18 [History] Allopurinol [Zyloprim 100 MG] 100 mg PO DAILY 10/19/18 [History] Aspirin [Adult Aspirin Regimen] 81 mg PO DAILY 10/19/18 [History] Colchicine [Colcrys] 0.6 mg PO AD PRN 10/19/18 [History] Escitalopram [Lexapro] 10 mg PO DAILY 10/19/18 [History] FluocinoNIDE 0.05% CRM [Lidex] 1 appl TP BID PRN 10/19/18 [History] Warfarin [Coumadin] 2.5 mg PO SUTUTHSA 10/19/18 [History] Warfarin [Coumadin] 5 mg PO MOWEFR 10/19/18 [History] Furosemide [Lasix] 40 mg PO BID #60 tablet 10/21/18 [Rx] Allergies/Adverse Reactions: Allergy/AdvReac Type Severity Reaction Status Date / Time No Known Allergies Allergy Verified 10/19/18 13:46 Date of admission: 10/20/18 14:42 Primary care physician: Demetris Olivier Consults: 10/20/18 08:17 Consult to Nurse Navigator [CONS] Routine Comment: PNEUMONIA 10/20/18 14:34 Consult to Physical Therapy [CONS] Routine Comment: Evaluate, develop and implement POC Reason for Consult: weakness Does patient have active BEDREST order?: No Is patient medically & hemodynamically stable?: Yes Patient assessed for mobility or mobilized this visit?: No - Constitutional Vitals: Temp Pulse Resp BP Pulse Ox 98.3 F 62 16 135/72 92 10/21/18 07:29 10/21/18 07:29 10/21/18 07:29 10/21/18 07:29 10/21/18 07:29 Exam: Skin: Free of rash and discoloration. Eyes: Sclera is white. There is no discharge from eyes. ENMT: Oral/pharyngeal mucosa is normal in appearance. There is no discharge from nose or ears. Respiratory: Normal breath sounds with no crackles and wheezes bilaterally. CV: Heart is regular with no gallop or murmur. GI: Abdomen is flat and soft with no palpable mass or visceromegaly. : There is no tenderness in patient's flanks bilaterally. Neuro exam: He has good strength in upper and lower extremities. He has normal eye movements. Psychiatric: He has normal affect. His thought process is appropriate to the situation. - Patient Status Disposition: Home, Self-Care Condition: Fair Functional capacity at discharge: independent ambulation Overall status at discharge: patient is back to baseline - Discharge Instructions Instructions: Pneumonia (DC) Follow Up With: Demetris Olivier [Primary Care Provider] - 10/26/18 9:40 am (Appointment has been requested.) - Diet and Activity Activity: increase activity as tolerated Diet: advance to your usual diet
[2018-10-21 11:42] VITALS: BP 120/73
[2018-10-21 12:44] LABS: Calcium 9.2 mg/dL (8.6-10.3); Potassium 4.3 mEq/L (3.5-5.1)
== END 2018-10-21 12:50 | disposition home or self-care (01) | DRG 194 ==
LOC: EMEROOARM 08:34 → 3BNU 08:34
PROVIDERS: ADMIT Student in an Organized Health Care Education/Training Program; ATTEND Student in an Organized Health Care Education/Training Program

== ENCOUNTER 2018-11-04 22:02 | Observation (INO) ==
--- NOTE | 2018-11-04 22:10 | Emergency Department Note ---
Disposition Clinical Impression: COPD (chronic obstructive pulmonary disease) Disposition: Admitted As Inpatient Condition: Fair Referrals: Demetris Olivier [Primary Care Provider] - Time of Disposition: 23:51 SOB HPI - General Stated Complaint: HEART PROBLEMS Source: patient Limitations: no limitations Nursing Notes Reviewed: Yes Vital Signs Reviewed: Yes - History of Present Illness Patient presenting to the ED with shortness breath. Reports he was recently admitted and discharged after pneumonia. States he finished his antibiotics about 3 days ago. States today he has been progressively more short of breath and feels like he has pneumonia again. Has a history of congestive heart failure and atrial fibrillation and is on Coumadin. No history of DVT or PE. States that he has shortness of breath at rest which is worse than baseline. Denies any chest pain or fever. - Related Data Home Medications Medication Instructions Recorded Confirmed Carvedilol 12.5 mg PO BID 05/22/18 11/04/18 Digoxin [Lanoxin] 0.125 mg PO DAILY 05/22/18 11/04/18 Donepezil [Aricept] 10 mg PO HS 05/22/18 11/04/18 Finasteride [Proscar] 5 mg PO DAILY 05/22/18 11/04/18 Fluticasone Propionate Nasal 2 spray NS DAILY 05/22/18 11/04/18 [Flonase] Hydrocodone/Acetaminophen [[place] 1 tab PO Q6H PRN 05/22/18 11/04/18 5-325 Tablet] Simvastatin [Zocor] 80 mg PO HS 05/22/18 11/04/18 ALPRAZolam [Xanax 0.25 MG Tablet] 0.25 mg PO BID 10/19/18 11/04/18 Allopurinol [Zyloprim 100 MG] 100 mg PO DAILY 10/19/18 11/04/18 Aspirin [Adult Aspirin Regimen] 81 mg PO DAILY 10/19/18 11/04/18 Colchicine [Colcrys] 0.6 mg PO AD PRN 10/19/18 11/04/18 Escitalopram [Lexapro] 10 mg PO DAILY 10/19/18 11/04/18 FluocinoNIDE 0.05% CRM [Lidex] 1 appl TP BID PRN 10/19/18 11/04/18 Warfarin [Coumadin] 2.5 mg PO SUTUTHSA 10/19/18 11/04/18 Warfarin [Coumadin] 5 mg PO MOWEFR 10/19/18 11/04/18 Previous Rx's Medication Instructions Recorded Furosemide [Lasix] 40 mg PO BID #60 tablet 10/21/18 Allergies Allergy/AdvReac Type Severity Reaction Status Date / Time No Known Allergies Allergy Verified 10/19/18 13:46 Review of Systems: As reviewed in the HPI. All other systems reviewed are negative or normal. Past Medical History - Past Medical History Attestation: Yes The following information was validated with the patient. Source: patient Medical history: Reports: atrial fibrillation, CHF, hypertension, other Surgical history: Reports: knee replacement, orthopedic, other, pacemaker Psychiatric history: Reports: anxiety, depression - Social History Smoking Status: Former smoker Smokeless Tobacco Status: Yes Alcohol use: Reports: occasionally Drug use: Reports: none Physical Exam CONSTITUTIONAL: [well appearing, alert and in no acute distress] EYES: [EOMI, clear conjunctiva, PERRLA] HENT: [Normocephalic, atraumatic, moist mucus membranes, normal oropharynx] NECK: [normal inspection, full ROM, trachea midline, no obvious swelling] PULMONARY: [Decreased breath sounds throughout, mild respiratory distress, normal chest rise and fall, mild espiratory distress or stridor, no wheezes, no rales, no rhonchi CARDIOVASCULAR: [regular rate, regular rhythm, normal heart sounds, no murmurs, distal extremities are warm and well perfused] GASTROINSTESTINAL: [soft, non-tender, non-rigid, non-distended, no guarding, no rebound, normal bowel sounds] GENITOURINARY/RECTAL: [deferred] NEUROLOGIC: [Alert, oriented x3, normal speech, moves all extremities] EXTREMITIES: [Normal inspection, full ROM, no tenderness, no pedal edema, normal capillary refill] MUSCULOSKELETAL: [no gross deformities, atraumatic] SKIN: [No cyanosis, no diaphoresis, normal color, warm, no rash] PSYCHIATRIC: [normal mood and affect] Course Course Narrative: Workup seems to be consistent with CHF versus COPD. Elevated BNP, but unsure what his baseline is, no pulmonary edema. We will go ahead and give her dose Lasix. We will also try breathing treatments and steroids. Patient has needed increased oxygen requirements from baseline, so we will admit for observation. Vital Signs Temperature 98.4 F 11/04/18 22:03 Pulse Rate 67 11/04/18 22:03 Respiratory Rate 20 11/04/18 22:03 Blood Pressure 131/86 11/04/18 22:03 O2 Sat by Pulse Oximetry 94 11/04/18 22:03 Temperature 98.4 F 11/04/18 22:03 Pulse Rate 60 11/04/18 22:27 Respiratory Rate 24 11/04/18 22:27 Blood Pressure 131/86 11/04/18 22:27 O2 Sat by Pulse Oximetry 97 11/04/18 22:27 Oxygen Delivery Oxygen Delivery Nasal Cannula Shortness of Breath/Dyspnea - Medical Records Medical records reviewed: Yes I reviewed the patient's medical records. - Lab Data Lab results reviewed: Yes I reviewed the patient's lab results. Result diagrams: 11/04/18 22:20 11/04/18 22:20 Lab Results 11/04/18 11/04/18 11/04/18 Range/Units 22:20 22:20 22:20 WBC 9.5 (4.3-11.1) K/mcL RBC 4.42 (4.19-5.50) M/mcL Hgb 13.4 (12.9-16.9) g/dL Hct 45.8 (37.5-50.1) % MCV 103.6 H (83.0-100.0) fL MCH 30.3 (28.0-33.3) pg MCHC 29.3 L (31.6-35.5) g/dL RDW 16.1 H (11.5-14.5) % Plt Count 158 (140-400) K/mcL MPV 11.1 (9.4-12.4) fL Immature Gran % 0.4 (0-4) % Seg Neutrophils % 69.9 % Lymphocytes % 16.9 % Monocytes % 10.2 % Eosinophils % 2.1 % Basophils % 0.5 % Neutrophils # 6.6 (1.6-8.9) K/mcL Lymphocytes # 1.6 (0.6-4.6) K/mcL Monocytes # 1.0 (0.0-1.3) K/mcL Eosinophils # 0.2 (0.0-0.6) K/mcL Basophils # 0.1 (0.0-0.2) K/mcL PT 18.3 H (9.4-12.1) Seconds INR 1.6 D-Dimer 454 (0-500) ng/mLFEU Sodium 141 (136-145) mEq/L Potassium 4.2 (3.5-5.1) mEq/L Chloride 96 L (98-107) mEq/L Carbon Dioxide 36 H (23-29) mEq/L BUN 30 H (8-23) mg/dL Creatinine 1.33 H (0.70-1.30) mg/dL Est GFR ( Amer) > 60 (> 60) Est GFR (Non-Af Amer) 51 L (> 60) BUN/Creatinine Ratio 23 (6-26) Glucose 115 H (70-105) mg/dL Calculated Osmolality 299 (280-300) Lactic Acid (0.5-2.2) mmol/L Calcium 8.9 (8.6-10.3) mg/dL Troponin I < 0.03 (< 0.04) ng/mL B-Natriuretic Peptide (Less than 100) pg/mL 11/04/18 11/04/18 Range/Units 22:20 22:20 WBC (4.3-11.1) K/mcL RBC (4.19-5.50) M/mcL Hgb (12.9-16.9) g/dL Hct (37.5-50.1) % MCV (83.0-100.0) fL MCH (28.0-33.3) pg MCHC (31.6-35.5) g/dL RDW (11.5-14.5) % Plt Count (140-400) K/mcL MPV (9.4-12.4) fL Immature Gran % (0-4) % Seg Neutrophils % % Lymphocytes % % Monocytes % % Eosinophils % % Basophils % % Neutrophils # (1.6-8.9) K/mcL Lymphocytes # (0.6-4.6) K/mcL Monocytes # (0.0-1.3) K/mcL Eosinophils # (0.0-0.6) K/mcL Basophils # (0.0-0.2) K/mcL PT (9.4-12.1) Seconds INR D-Dimer (0-500) ng/mLFEU Sodium (136-145) mEq/L Potassium (3.5-5.1) mEq/L Chloride (98-107) mEq/L Carbon Dioxide (23-29) mEq/L BUN (8-23) mg/dL Creatinine (0.70-1.30) mg/dL Est GFR ( Amer) (> 60) Est GFR (Non-Af Amer) (> 60) BUN/Creatinine Ratio (6-26) Glucose (70-105) mg/dL Calculated Osmolality (280-300) Lactic Acid 2.8 H (0.5-2.2) mmol/L Calcium (8.6-10.3) mg/dL Troponin I (< 0.04) ng/mL B-Natriuretic Peptide 727 H (Less than 100) pg/mL - Radiology Data Radiology results reviewed: Yes I reviewed the patient's radiology results. - EKG Data EKG attestation: Yes I reviewed and interpreted this EKG. EKG results narrative: Paced rhythm, rate 75, unchanged from previous
[2018-11-04 22:34] LABS: Basophils # 0.1 K/mcL (0.0-0.2); Basophils % 0.5 %; Eosinophils # 0.2 K/mcL (0.0-0.6); Eosinophils % 2.1 %; Hematocrit 45.8 % (37.5-50.1); Hemoglobin 13.4 g/dL (12.9-16.9); Immature Granulocytes % 0.4 % (0-4); Lymphocytes # 1.6 K/mcL (0.6-4.6); Lymphocytes % 16.9 %; Mean Corpuscular HGB Conc 29.3 g/dL (31.6-35.5); Mean Corpuscular Hemoglobin 30.3 pg (28.0-33.3); Mean Corpuscular Volume 103.6 fL (83.0-100.0); Mean Platelet Volume 11.1 fL (9.4-12.4); Monocytes % 10.2 %; Neutrophils # 6.6 K/mcL (1.6-8.9); Platelet Count 158 K/mcL (140-400); Red Blood Count 4.42 M/mcL (4.19-5.50); Red Cell Distribution Width 16.1 % (11.5-14.5); Segmented Neutrophils % 69.9 %
[2018-11-04 22:41] LABS: INR 1.6; Prothrombin Time 18.3 Seconds (9.4-12.1)
--- NOTE | 2018-11-04 22:50 | Emergency Department Note ---
Disposition Clinical Impression: COPD (chronic obstructive pulmonary disease) Disposition: Admitted As Inpatient Referrals: Demetris Olivier [Primary Care Provider] - Time of Disposition: 22:50 General Adult HPI - General Chief complaint: ED Shortness of Breath/Dyspnea Stated complaint: HEART PROBLEMS Time Seen by Provider: 11/04/18 22:09 Source: patient Limitations: no limitations - History of Present Illness Pain Scale: 0 - Related Data Home Medications Medication Instructions Recorded Confirmed Carvedilol 12.5 mg PO BID 05/22/18 10/19/18 Digoxin [Lanoxin] 0.125 mg PO DAILY 05/22/18 10/19/18 Donepezil [Aricept] 10 mg PO HS 05/22/18 10/19/18 Finasteride [Proscar] 5 mg PO DAILY 05/22/18 10/19/18 Fluticasone Propionate Nasal 2 spray NS DAILY 05/22/18 10/19/18 [Flonase] Hydrocodone/Acetaminophen [[place] 1 tab PO Q6H PRN 05/22/18 10/19/18 5-325 Tablet] Mupirocin [Bactroban Oint] 1 applic TP TID PRN 05/22/18 10/19/18 Simvastatin [Zocor] 80 mg PO HS 05/22/18 10/19/18 ALPRAZolam [Xanax 0.25 MG Tablet] 0.25 mg PO BID 10/19/18 10/19/18 Allopurinol [Zyloprim 100 MG] 100 mg PO DAILY 10/19/18 10/19/18 Aspirin [Adult Aspirin Regimen] 81 mg PO DAILY 10/19/18 10/19/18 Colchicine [Colcrys] 0.6 mg PO AD PRN 10/19/18 10/19/18 Escitalopram [Lexapro] 10 mg PO DAILY 10/19/18 10/19/18 FluocinoNIDE 0.05% CRM [Lidex] 1 appl TP BID PRN 10/19/18 10/19/18 Warfarin [Coumadin] 2.5 mg PO SUTUTHSA 10/19/18 10/19/18 Warfarin [Coumadin] 5 mg PO MOWEFR 10/19/18 10/19/18 Previous Rx's Medication Instructions Recorded Furosemide [Lasix] 40 mg PO BID #60 tablet 10/21/18 Allergies Allergy/AdvReac Type Severity Reaction Status Date / Time No Known Allergies Allergy Verified 10/19/18 13:46 Past Medical History - Past Medical History Medical history: Reports: atrial fibrillation, CHF, COPD, hypertension, renal disease, other Surgical history: Reports: knee replacement, orthopedic, other, pacemaker Psychiatric history: Reports: anxiety, depression - Social History Smoking Status: Former smoker Smokeless Tobacco Status: Yes Alcohol use: Reports: occasionally Drug use: Reports: none Physical Exam - General Limitations: no limitations General appearance: alert, in no apparent distress Course Vital Signs Temperature 98.4 F 11/04/18 22:03 Pulse Rate 67 11/04/18 22:03 Respiratory Rate 20 11/04/18 22:03 Blood Pressure 131/86 11/04/18 22:03 O2 Sat by Pulse Oximetry 94 11/04/18 22:03 Temperature 98.4 F 11/04/18 22:03 Pulse Rate 60 11/04/18 22:27 Respiratory Rate 24 11/04/18 22:27 Blood Pressure 131/86 11/04/18 22:27 O2 Sat by Pulse Oximetry 97 11/04/18 22:27 Oxygen Delivery Oxygen Delivery Nasal Cannula Medical Decision Making - Lab Data Result diagrams: 11/04/18 22:20 Lab Results 11/04/18 11/04/18 11/04/18 Range/Units 22:20 22:20 22:20 WBC 9.5 (4.3-11.1) K/mcL RBC 4.42 (4.19-5.50) M/mcL Hgb 13.4 (12.9-16.9) g/dL Hct 45.8 (37.5-50.1) % MCV 103.6 H (83.0-100.0) fL MCH 30.3 (28.0-33.3) pg MCHC 29.3 L (31.6-35.5) g/dL RDW 16.1 H (11.5-14.5) % Plt Count 158 (140-400) K/mcL MPV 11.1 (9.4-12.4) fL Immature Gran % 0.4 (0-4) % Seg Neutrophils % 69.9 % Lymphocytes % 16.9 % Monocytes % 10.2 % Eosinophils % 2.1 % Basophils % 0.5 % Neutrophils # 6.6 (1.6-8.9) K/mcL Lymphocytes # 1.6 (0.6-4.6) K/mcL Monocytes # 1.0 (0.0-1.3) K/mcL Eosinophils # 0.2 (0.0-0.6) K/mcL Basophils # 0.1 (0.0-0.2) K/mcL PT 18.3 H (9.4-12.1) Seconds INR 1.6 D-Dimer 454 (0-500) ng/mLFEU Lactic Acid 2.8 H (0.5-2.2) mmol/L Attestation Statement - Attestation Attestation: I examined this patient and my medical decision-making was reviewed with the Resident Physician. I agree with the documented findings, disposition and treatment plan as described except to the extent set forth below. 83 year old male presents to the ED with complaints of shortness of breath and was most reenty admitted to the hospital last week for pnuemoina. Feels like it has returned. He is currently paced. COPD patinet that is on 2LNC continously and has required increased amount of oxygen at bedside and is now at 3.5L. WE will workup for pnuemoina and assess for HCAP and then likely re-admit
[2018-11-04 22:54] LABS: BUN/Creatinine Ratio 23 (6-26); Blood Urea Nitrogen 30 mg/dL (8-23); Calcium 8.9 mg/dL (8.6-10.3); Carbon Dioxide 36 mEq/L (23-29); Chloride 96 mEq/L (98-107); Glucose 115 mg/dL (70-105); Osmolality,Calculated 299 (280-300); Potassium 4.2 mEq/L (3.5-5.1); Sodium 141 mEq/L (136-145); eGFR For Non-African Americans 51 (> 60)
[2018-11-04 22:55] LABS: Troponin I < 0.03 ng/mL (< 0.04)
[2018-11-04] MEDS ORDERED: Ipratropium/Albuterol Neb 3 ML IH ONE (23:06)
[2018-11-04] MEDS ORDERED: methylPREDNISolone 125 MG/2 ML VIAL IVP ONE (23:06)
[2018-11-04] MEDS ORDERED: Furosemide 40 MG/4 ML VIAL IVP ONE (23:23)
--- NOTE | 2018-11-05 00:11 | Internal Med History&Physical ---
Date of Encounter: 11/05/18 Time of Encounter: 00:00 Internal Medicine - H&P: HPI Chief complaint: Dyspnea History of present illness: Mr. Catherine is a 83 year old male with a past medical history of hypertension, diabetes, hyperlipidemia, heart failure with preserved ejection fraction, atrial fibrillation on Coumadin, severe pulmonary hypertension, CKD and pacemaker p lacement who presented to the ED with progressive shortness of breath. Patient was recently admitted earlier this month for possible pneumonia. Patient states that he recently completed his antibiotic course but still feels short of breath. Patient is on 2 L home oxygen at baseline but has been titrating it up to 4 L intermittently. Patient reports increasing shortness of breath with minimal exertion. Getting up to go to the bathroom he states has been a task, and even tying his shoes causes him to feel short of breath. Patient is currently on 40 mg of Lasix twice a day and states that he has been compliant except for missing a dose last night because he overslept. Patient does not ch mayela his weight daily but states that his weight fluctuates between 215 and 225 and will periodically check his weight if his fingers well and ring finger becomes too tight. Patient does endorse orthopnea but only if he lays down on his back. Patient has been sleeping on his side without any issues. No reports of PND. No reports of increased lower extremity edema or increased abdominal girth. Patient denies any chest pain. He is currently on Coumadin for his atrial fibrillation. No reports of fever, chills, nausea , vomiting or worsening cough or wheezing. He has a significant previous smoking history but quit approximately 30 years ago. On arrival patient was afebrile, hemodynamically stable; mildly tachypneic. Currently saturating 97% on 3 L. Initial laboratory workup was notable for a elevated bicarbonate of 36, mildly elevated creatinine of 1.33, lactic acid of 2.8 and BNP of 727. Troponin was negative. D-dimer was less than 500. Chest x-ray was obtained which showed interval improvement from previous x-ray noting left basal atelectasis or pneumonitis slightly improved. EKG shows ventricular paced rhythm with no significant changes from previous EKG. on my assessment patient was sitting up in bed in the absence of any acute respiratory distress or conversational dyspnea. Patient will be admitted for possible CHF exacerbation. Past Med Surg Social Fam HX - Past Medical History Medical history: atrial fibrillation, CHF, COPD, hypertension, renal disease, other Psychiatric history: anxiety, depression - Past Surgical History Surgical History: knee replacement, orthopedic, other, pacemaker Additional surgical history: Rt Shoulder replacement, back surgery, bilat partial knee surgery - Social History Smoking Status: Former smoker Smokeless Tobacco Status: Yes Alcohol use: occasionally Drug use: none - Family History Father Living Status: Mother Living Status: Internal Medicine - H&P: Meds Carvedilol 12.5 mg PO BID 05/22/18 [History] Digoxin [Lanoxin] 0.125 mg PO DAILY 05/22/18 [History] Donepezil [Aricept] 10 mg PO HS 05/22/18 [History] Finasteride [Proscar] 5 mg PO DAILY 05/22/18 [History] Fluticasone Propionate Nasal [Flonase] 2 spray NS DAILY 05/22/18 [History] Hydrocodone/Acetaminophen [[place] 5-325 Tablet] 1 tab PO Q6H PRN 05/22/18 [History] Simvastatin [Zocor] 80 mg PO HS 05/22/18 [History] ALPRAZolam [Xanax 0.25 MG Tablet] 0.25 mg PO BID 10/19/18 [History] Allopurinol [Zyloprim 100 MG] 100 mg PO DAILY 10/19/18 [History] Aspirin [Adult Aspirin Regimen] 81 mg PO DAILY 10/19/18 [History] Colchicine [Colcrys] 0.6 mg PO AD PRN 10/19/18 [History] Escitalopram [Lexapro] 10 mg PO DAILY 10/19/18 [History] FluocinoNIDE 0.05% CRM [Lidex] 1 appl TP BID PRN 10/19/18 [History] Warfarin [Coumadin] 2.5 mg PO SUTUTHSA 10/19/18 [History] Warfarin [Coumadin] 5 mg PO MOWEFR 10/19/18 [History] Furosemide [Lasix] 40 mg PO BID #60 tablet 10/21/18 [Rx] Allergy/AdvReac Type Severity Reaction Status Date / Time No Known Allergies Allergy Verified 10/19/18 13:46 All Systems PM: A 10-system review of systems was performed and is negative for pertinent findings except as documented above in the HPI. - Constitutional Constitutional: no chills, no fever(s), no night sweats - EENT Eyes: no change in vision, no discharge, no pain, no photophobia Ears: no ear discharge, no ear pain, no tinnitus Nose, mouth and throat: no dysphagia, no nasal discharge, no neck pain, no sore throat - Cardiovascular Cardiovascular ROS IM: no chest pain, no diaphoresis, no dyspnea, no lightheadedness, no palpitations, no syncope - Respiratory Respiratory: no cough, no dyspnea, no wheezing, no excessive phlegm production - Gastrointestinal Gastrointestinal: no abdominal pain, no diarrhea, no hematemesis, no hematochezia, no melena, no nausea, no vomiting - Musculoskeletal Musculoskeletal ROS IM: no numbness, no tingling - Integumentary Integumentary IM: no rash, no unusual bruising - Neurological Neurological ROS: no confusion, no convulsions, no focal weakness, no numbness, no tingling, no tremor(s) - Hematologic/Lymphatic Hematologic/Lymphatic: no easy bruising - Constitutional Vitals: Temp Pulse Resp BP Pulse Ox 98.4 F 60 24 131/86 97 11/04/18 22:03 11/04/18 22:27 11/04/18 22:27 11/04/18 22:27 11/04/18 22:27 Exam: General: Alert and oriented 3 Skin:Normal color, no rash, no lesions. HEENT:EOM, pupils equal, round and reactive. Cardiovascular:Normal S1 with prominent S2. No rubs gallops or murmurs. Lungs: Bibasilar crackles appreciated Abdomen:Soft, non-tender, no rigidity. Extremities:No deformity, no edema or tenderness, no joint swelling or clubbing. Neurological:Normal cognition and motor skills. Pulses:Carotid and radial pulses normal +2. Rest of the physical exam is non contributory Internal Med - H&P Results - Labs CBC & Chem 7: 11/04/18 22:20 11/04/18 22:20 Labs: Short CBC 11/04/18 Range/Units 22:20 WBC 9.5 (4.3-11.1) K/mcL Hgb 13.4 (12.9-16.9) g/dL Hct 45.8 (37.5-50.1) % Plt Count 158 (140-400) K/mcL Neutrophils # 6.6 (1.6-8.9) K/mcL BMP 11/04/18 22:20 Sodium 141 Potassium 4.2 Chloride 96 L Carbon Dioxide 36 H BUN 30 H Creatinine 1.33 H Glucose 115 H Calcium 8.9 Cardiac Enzymes 11/04/18 Range/Units 22:20 Troponin I < 0.03 (< 0.04) ng/mL - Impressions ITS Impressions Chest X-Ray 11/04/18 22:08 IMPRESSION: Chronic elevation of left hemidiaphragm. Left basilar atelectasis or pneumonitis is slightly improved as compared to prior. Sequela of granulomatous disease. D/ / Josef Matrinez MD / Josef Martinez MD Interpreting Provider: Josef Martinez MD - Assessment and Plan (1) Dyspnea on exertion Current Visit: No Status: Acute Assessment and plan: Patient presenting with worsening dyspnea on exertion for the past week. Etiology likely multifactorial in the setting of multiple chronic cardiac and pulmonary comorbidities but predominantly appears to be secondary to a mild CHF exacerbation. Last echo in 2018 showed an EF of 60%, indeterminate diastolic function, atypical septal motion consistent with paced rhythm and severe pulmonary hypertension. Review of chest x-ray shows interval improvement from previous chest x-ray with likely resolution of a previous possible pneumonia. Patient's remains afebrile and has no leukocytosis. Patient has documented COPD history in is chart, however we have no records of any pulmonary function testing to support. Patient does not have any wheezing on physical examination. Patient received one-time dose of Lasix 40 mg IV and DuoNeb's with Solu- Medrol. No reports of chest pain and no evidence of elevated troponin or ischemia on EKG, though rhythm is paced. -We will treat for possible CHF exacerbation -Continue O2 support -Patient may additionally benefit from a stress test at some point to determine any underlying ischemia contributing to his dyspnea. We will defer to cardiology for further workup. (2) Acute diastolic congestive heart failure Current Visit: No Status: Resolved Assessment and plan: Patient with a history of diastolic heart failure presenting with increased dyspnea upon exertion. BNP found to be 727. Concern for CHF exacerbation. Last echo in 2018 showed an EF of 60%. Patient has a paced rhythm. He is currently on 40 mg of Lasix twice a day. Patient given a one-time dose of Lasix in the ED. -Strict I's and O's; daily weights -Continue Lasix 40 mg IV twice a day; monitor kidney function -echocardiogram in the morning -We will continue patient's aspirin, statin, and digoxin. We will continue beta renny for now as exacerbation appears to be mild. Patient does not appear to be on an VIVIAN inhibitor or ARB. -Given patient's multiple cardiac and pulmonary comorbidities we will consult cardiology. (3) Chronic kidney disease, stage III (moderate) Current Visit: Yes Status: Acute Assessment and plan: Patient has what appears to be stage III chronic kidney disease. Creatinine of 1.33 appears to be near baseline. -We will continue IV Lasix and monitor kidney function. (4) Atrial fibrillation Current Visit: Yes Status: Acute Assessment and plan: Atrial fibrillation rate controlled on anticoagulation with warfarin. Rhythm currently paced. INR 1.6. -We will continue beta renny -Continue warfarin with pharmacy to dose Qualifiers: Atrial fibrillation type: chronic Qualified Code(s): I48.2 - Chronic atrial fibrillation (5) DVT prophylaxis Current Visit: No Status: Acute Assessment and plan: Patient currently on anticoagulation with warfarin. Most recent INR 1.6. Pharmacy to titrate - Time Spent With Patient Total time spent is greater than 50% in coordination of care (as documented) at patient's floor/unit and/or counseling patient:
[2018-11-05] MEDS ORDERED: Naloxone 0.4 MG/ML INJ IVP PRN (01:01)
[2018-11-05] MEDS ORDERED: FluocinoNIDE 0.05% CRM 15 GM TUBE TP PRN (01:10)
[2018-11-05] MEDS ORDERED: Colchicine 0.6 MG TABLET PO PRN (01:10)
[2018-11-05 02:51] LABS: Alanine Aminotransferase 15 Units/L (7-52); Albumin 3.8 g/dL (3.5-5.7); Albumin/Globulin Ratio 1.5 (1.1-2.2); Alkaline Phosphatase 81 Units/L (34-104); Aspartate Amino Transferase 20 Units/L (13-39); BUN/Creatinine Ratio 28 (6-26); Blood Urea Nitrogen 35 mg/dL (8-23); Calcium 8.6 mg/dL (8.6-10.3); Carbon Dioxide 35 mEq/L (23-29); Chloride 97 mEq/L (98-107); Globulin 2.5 g/dL (2.4-3.5); Glucose 133 mg/dL (70-105); Osmolality,Calculated 304 (280-300); Potassium 4.8 mEq/L (3.5-5.1); Sodium 142 mEq/L (136-145); Total Protein 6.3 g/dL (6.4-8.9); Troponin I < 0.03 ng/mL (< 0.04); eGFR For Non-African Americans 54 (> 60)
[2018-11-05 03:01] LABS: Basophils % 0.4 %; Eosinophils % 0.5 %; Hematocrit 44.1 % (37.5-50.1); Hemoglobin 13.2 g/dL (12.9-16.9); Immature Granulocytes % 0.5 % (0-4); Lymphocytes # 0.9 K/mcL (0.6-4.6); Lymphocytes % 11.5 %; Mean Corpuscular HGB Conc 29.9 g/dL (31.6-35.5); Mean Corpuscular Hemoglobin 30.9 pg (28.0-33.3); Mean Corpuscular Volume 103.3 fL (83.0-100.0); Mean Platelet Volume 11.4 fL (9.4-12.4); Monocytes # 0.3 K/mcL (0.0-1.3); Monocytes % 3.3 %; Neutrophils # 6.6 K/mcL (1.6-8.9); Platelet Count 133 K/mcL (140-400); Red Blood Count 4.27 M/mcL (4.19-5.50); Red Cell Distribution Width 16.1 % (11.5-14.5); Segmented Neutrophils % 83.8 %
[2018-11-05 03:22] LABS: INR 1.7; Prothrombin Time 19.4 Seconds (9.4-12.1)
[2018-11-05 03:23] LABS: Activated Partial Thrombo Time 37.8 Seconds (26.0-36.0)
[2018-11-05] MEDS: Aspirin Enteric Coated 81 MG Tablet PO SCH (07:56)
[2018-11-05] MEDS: Finasteride 5 MG TABLET PO SCH (07:56)
[2018-11-05] MEDS: ALPRAZolam 0.25 MG TABLET PO SCH ×2 (07:56→20:20)
[2018-11-05] MEDS: Fluticasone Propionate Nasal 50 MCG/SPRAY BOTTLE NS SCH (07:57)
[2018-11-05] MEDS: *HR* Digoxin 0.125 MG TABLET PO SCH (07:58)
[2018-11-05] MEDS ORDERED: Furosemide 40 MG/4 ML VIAL IVP SCH ×3 (09:00→17:00)
--- NOTE | 2018-11-05 09:56 | Cardiology Consult Note ---
Date of Encounter: 11/05/18 Time of Encounter: 09:51 Assessment and Plan (1) Atrial fibrillation Current Visit: No Status: Chronic known chronic, continue current regimen. Qualifiers: Atrial fibrillation type: paroxysmal Qualified Code(s): I48.0 - Paroxysmal atrial fibrillation (2) Acute diastolic congestive heart failure Current Visit: No Status: Resolved Acute on chronic with mild fluid overload currently. Would increase diuretics. Discussion w patient/family: The assessment and plan as outlined above was discussed with the patient and/or family members who expressed understanding and agreement. All questions were answered. Thank you for involving us in the care of your patient. Please call with any questions. History of Present Illness Consult date: 11/05/18 Requesting physician: Paulino Contreras Consult reason: CHF Chief complaint: SOB History of present illness: Mr. Catherine is a 83 year old male with history of chronic AF, previous ca rdiomyopathy with recovered EF, S/P BIV pacer. Known diastolic CHF. He was recently hospitalized for pneumonia and recently finished antibiotics. He has developed several days of worsening SOB and mild swelling. Past Med Surg Social Fam HX - Past Medical History Medical history: atrial fibrillation, CHF, COPD, hypertension, renal disease, other Psychiatric history: anxiety, depression - Past Surgical History Surgical History: knee replacement, orthopedic, other, pacemaker Additional surgical history: Rt Shoulder replacement, back surgery, bilat partial knee surgery - Social History Smoking Status: Former smoker Smokeless Tobacco Status: Yes Alcohol use: occasionally Drug use: none - Family History Father Living Status: Mother Living Status: Medications and Allergies Carvedilol 12.5 mg PO BID 05/22/18 [History] Digoxin [Lanoxin] 0.125 mg PO DAILY 05/22/18 [History] Donepezil [Aricept] 10 mg PO HS 05/22/18 [History] Finasteride [Proscar] 5 mg PO DAILY 05/22/18 [History] Fluticasone Propionate Nasal [Flonase] 2 spray NS DAILY 05/22/18 [History] Hydrocodone/Acetaminophen [[place] 5-325 Tablet] 1 tab PO Q6H PRN 05/22/18 [History] Simvastatin [Zocor] 80 mg PO HS 05/22/18 [History] ALPRAZolam [Xanax 0.25 MG Tablet] 0.25 mg PO BID 10/19/18 [History] Allopurinol [Zyloprim 100 MG] 100 mg PO DAILY 10/19/18 [History] Aspirin [Adult Aspirin Regimen] 81 mg PO DAILY 10/19/18 [History] Colchicine [Colcrys] 0.6 mg PO AD PRN 10/19/18 [History] Escitalopram [Lexapro] 10 mg PO DAILY 10/19/18 [History] FluocinoNIDE 0.05% CRM [Lidex] 1 appl TP BID PRN 10/19/18 [History] Warfarin [Coumadin] 2.5 mg PO SUTUTHSA 10/19/18 [History] Warfarin [Coumadin] 5 mg PO MOWEFR 10/19/18 [History] Furosemide [Lasix] 40 mg PO BID #60 tablet 10/21/18 [Rx] Allergy/AdvReac Type Severity Reaction Status Date / Time No Known Allergies Allergy Verified 10/19/18 13:46 All Systems Review: The remainder of the systems were reviewed and are negative Physical Examination Vital Signs, Last 4 Hours Temp Pulse Resp BP Pulse Ox 11/05/18 07:38 98.2 F 74 18 160/96 91 General: Conversant, No Apparent Distress HEENT: Atraumatic, Normocephaly, Mucus Membranes Moist Neck: No JVD, Normal carotid pulses Cardiac: Other (Systolic murmur) Lungs: Other (Decreased at bases) Neuro: Alert and responsive, No focal deficits noted Abdomen: Soft, Non-Tender Skin: No rashes noted on visualized skin Musculoskeletal: No Chest Wall Tenderness Results 11/05/18 02:14 11/05/18 02:14 Lab Results 11/04/18 11/04/18 11/04/18 22:20 22:20 22:20 WBC 9.5 Hgb 13.4 Hct 45.8 Plt Count 158 INR 1.6 APTT D-Dimer 454 Sodium 141 Potassium 4.2 Chloride 96 L Carbon Dioxide 36 H BUN 30 H Creatinine 1.33 H Glucose 115 H Calcium 8.9 Total Bilirubin AST ALT Alkaline Phosphatase Troponin I < 0.03 B-Natriuretic Peptide 11/04/18 11/05/18 11/05/18 22:20 02:14 02:14 WBC 7.8 Hgb 13.2 Hct 44.1 Plt Count 133 L INR 1.7 APTT 37.8 H D-Dimer Sodium Potassium Chloride Carbon Dioxide BUN Creatinine Glucose Calcium Total Bilirubin AST ALT Alkaline Phosphatase Troponin I B-Natriuretic Peptide 727 H 11/05/18 02:14 WBC Hgb Hct Plt Count INR APTT D-Dimer Sodium 142 Potassium 4.8 Chloride 97 L Carbon Dioxide 35 H BUN 35 H Creatinine 1.27 Glucose 133 H Calcium 8.6 Total Bilirubin 1.0 AST 20 ALT 15 Alkaline Phosphatase 81 Troponin I < 0.03 B-Natriuretic Peptide Consult Discharge Plan - Plan
--- NOTE | 2018-11-05 10:20 | Internal Med Progress Note ---
Hospitalist Progress Note - Encounter Date of Encounter: 11/05/18 Time of Encounter: 07:45 - Subjective Interval History: H&P reviewed. Patient reports improvement in his symptoms after started on IV diuretics. Denies any chest pain, worsening shortness of breath. Reports inconsistent compliance to fluid restriction, salt intake, and Lasix use - Exam Vitals: Temp Pulse Resp BP Pulse Ox 98.2 F 74 18 160/96 91 11/05/18 07:38 11/05/18 07:38 11/05/18 07:38 11/05/18 07:38 11/05/18 07:38 Exam: General: Alert and oriented 3 HEENT:EOMI, pupils equal, round and reactive. Cardiovascular:Normal S1 with prominent S2. No rubs gallops or murmurs. Lungs: Bibasilar crackles in bilateral lower zones. Minimal pitting LE edema Abdomen:Soft, non-tender, no rigidity. Extremities:no joint swelling or clubbing. Neurological:Normal cognition and motor skills. - Assessment and Plan (1) Acute diastolic congestive heart failure Current Visit: Yes Status: Acute Assessment and Plan: In the setting of inconsistent compliance to salt intake, fluid restriction, and Lasix use reports symptomatic improvement on IV lasix, continue. Appreciate cardiology input monitor electrolytes echocardiogram pending (2) Chronic kidney disease, stage III (moderate) Current Visit: Yes Status: Chronic Assessment and Plan: Patient has what appears to be stage III chronic kidney disease. Creatinine stable on IV lasix, continue to monitor (3) Atrial fibrillation Current Visit: Yes Status: Chronic Assessment and Plan: Continue beta renny, digoxin Continue warfarin with pharmacy to dose (4) Pulmonary hypertension Current Visit: Yes Status: Chronic Assessment and Plan: Noted on echocardiogram 05/2018, could also be contributing to his symptoms of dyspnea on exertion for outpatient pulmonary/cardiology follow up (5) COPD (chronic obstructive pulmonary disease) Current Visit: Yes Status: Chronic Assessment and Plan: not in exacerbation, PRN duoneb (6) DVT prophylaxis Current Visit: No Status: Acute Assessment and Plan: On coumadin - Time Spent with Patient Total time spent is greater than 50% in coordination of care (as documented) at patient's floor/unit and/or counseling patient: 25 - 35 minutes Plan of Care Discussed with: patient Internal Medicine: Result - Labs CBC & Chem 7: 11/05/18 02:14 11/05/18 02:14 Labs: Short CBC 11/04/18 11/05/18 Range/Units 22:20 02:14 WBC 9.5 7.8 (4.3-11.1) K/mcL Hgb 13.4 13.2 (12.9-16.9) g/dL Hct 45.8 44.1 (37.5-50.1) % Plt Count 158 133 L (140-400) K/mcL Neutrophils # 6.6 6.6 (1.6-8.9) K/mcL BMP 11/04/18 11/05/18 22:20 02:14 Sodium 141 142 Potassium 4.2 4.8 Chloride 96 L 97 L Carbon Dioxide 36 H 35 H BUN 30 H 35 H Creatinine 1.33 H 1.27 Glucose 115 H 133 H Calcium 8.9 8.6 Cardiac Enzymes 11/04/18 11/05/18 Range/Units 22:20 02:14 Troponin I < 0.03 < 0.03 (< 0.04) ng/mL Liver Function 11/05/18 Range/Units 02:14 Total Bilirubin 1.0 (0.3-1.0) mg/dL AST 20 (13-39) Units/L ALT 15 (7-52) Units/L Alkaline Phosphatase 81 (34-104) Units/L Albumin 3.8 (3.5-5.7) g/dL - ABG Interpretation ABG results: PT/INR, D-dimer PT 19.4 Seconds (9.4-12.1) H 11/05/18 02:14 454 ng/mLFEU (0-500) 11/04/18 22:20 - Impressions Impressions Chest X-Ray 11/04/18 22:08 IMPRESSION: Chronic elevation of left hemidiaphragm. Left basilar atelectasis or pneumonitis is slightly improved as compared to prior. Sequela of granulomatous disease. D/ / Josef Martinez MD / Josef Martinez MD Interpreting Provider: Josef Martinez MD Consult Discharge Plan - Plan Referrals: Demetris Olivier [Primary Care Provider] - (3) Atrial fibrillation Qualifiers: Atrial fibrillation type: chronic Qualified Code(s): I48.2 - Chronic atrial fibrillation (5) COPD (chronic obstructive pulmonary disease) Qualifiers: COPD type: unspecified COPD Qualified Code(s): J44.9 - Chronic obstructive pulmonary disease, unspecified
[2018-11-05] MEDS ORDERED: Ipratropium/Albuterol Neb 3 ML IH PRN (10:21)
[2018-11-05] MEDS ORDERED: Furosemide 20 MG/2 ML VIAL IVP ONE (11:10)
--- NOTE | 2018-11-05 14:28 | Electrocardiograph Report ---
[place] [id number] Test Date: 2018-11-04 Pat Name: Carlos Catherine Department: [id number] Room: 2A25 Gender: M Filing Or Registry Clerk: : [id number] Requested By: Anthony Majano Order Number: [id number] Reading MD: Zackery Morris Measurements Intervals [place] Rate: 75 P: 0 [place]: 194 QRS: -80 QRSD: 149 T: 105 QT: 433 QTc: 484 Interpretive Statements Ventricular-paced rhythm No further analysis attempted due to paced rhythm Electronically Signed On 11-05-2018 14:26:40 EDT by Zackery Morris
[2018-11-05] MEDS: *HR* HYDROcodone/Acet 5/325 mg TABLET PO PRN (17:31)
[2018-11-05] MEDS ORDERED: Warfarin perPT PO PRN (18:00)
[2018-11-05] MEDS ORDERED: *HR* Warfarin 2.5 MG TABLET PO ONE (18:00)
[2018-11-06 05:27] LABS: Basophils % 0.2 %; Hematocrit 41.1 % (37.5-50.1); Hemoglobin 12.5 g/dL (12.9-16.9); Immature Granulocytes % 0.5 % (0-4); Lymphocytes # 1.2 K/mcL (0.6-4.6); Lymphocytes % 13.8 %; Mean Corpuscular HGB Conc 30.4 g/dL (31.6-35.5); Mean Corpuscular Hemoglobin 30.5 pg (28.0-33.3); Mean Corpuscular Volume 100.2 fL (83.0-100.0); Mean Platelet Volume 11.2 fL (9.4-12.4); Monocytes # 0.7 K/mcL (0.0-1.3); Monocytes % 8.4 %; Neutrophils # 6.4 K/mcL (1.6-8.9); Platelet Count 139 K/mcL (140-400); Red Cell Distribution Width 15.9 % (11.5-14.5); Segmented Neutrophils % 77.1 %
[2018-11-06 05:35] LABS: INR 1.8; Prothrombin Time 19.9 Seconds (9.4-12.1)
[2018-11-06 05:45] LABS: Calcium 8.4 mg/dL (8.6-10.3); Magnesium 2.2 mg/dL (1.6-2.6); Potassium 4.4 mEq/L (3.5-5.1)
[2018-11-06 09:46] VITALS: BP 164/90
[2018-11-06] MEDS: Aspirin Enteric Coated 81 MG Tablet PO SCH (09:47)
[2018-11-06] MEDS: Fluticasone Propionate Nasal 50 MCG/SPRAY BOTTLE NS SCH (09:47)
[2018-11-06] MEDS: *HR* Digoxin 0.125 MG TABLET PO SCH (09:47)
[2018-11-06] MEDS: Finasteride 5 MG TABLET PO SCH (09:47)
[2018-11-06] MEDS: ALPRAZolam 0.25 MG TABLET PO SCH (09:47)
[2018-11-06] MEDS: *HR* HYDROcodone/Acet 5/325 mg TABLET PO PRN (09:51)
--- NOTE | 2018-11-06 10:00 | Discharge Summary ---
- NOTES TO OUTPATIENT PROVIDER Notes to Outpatient Provider: BMP and PT/INR in 3 days. Follow-up with PCP, cardiology, and anticoagulation clinic Orders not resulted at time of discharge: Pending orders 11/07/18 04:00 PT/INR [Prothrombin Time INR] [COAG] AM 0400 11/08/18 04:00 PT/INR [Prothrombin Time INR] [COAG] AM 0400 Date of Encounter: 11/06/18 Time of Encounter: 08:00 - Discharge Diagnosis (1) Acute diastolic congestive heart failure Priority: Primary Status: Acute (2) Chronic kidney disease, stage III (moderate) Priority: Secondary Status: Chronic (3) Atrial fibrillation Priority: Secondary Status: Chronic Qualifiers: Atrial fibrillation type: chronic Qualified Code(s): I48.2 - Chronic atrial fibrillation (4) Pulmonary hypertension Priority: Secondary Status: Chronic (5) COPD (chronic obstructive pulmonary disease) Priority: Secondary Status: Chronic Qualifiers: COPD type: unspecified COPD Qualified Code(s): J44.9 - Chronic obstructive pulmonary disease, unspecified (6) DVT prophylaxis Priority: Secondary Status: Acute Hospital course: Mr. Catherine is a 83 year old male with history of HFpEF, hypertension, diabetes, hyperlipidemia, atrial fibrillation on Coumadin and s/p PM, pulmonary hypertension, CKD, who was admitted for mild decompensated heart failure in the setting of inconsistent compliance to a 6, salt intake, and fluid restriction. ACS ruled out with serial troponins and Echocardiogram did not show any changes to his EF. Responded well to IV diuretics for 2 days and will be discharged home on lasix 40mg BID and follow up BMP in 3 days with PCP appt. He will also need to follow-up in anticoagulation clinic as well as chemical engineer opimization of diuretics. Patient was advised to take additional 40 mg of Lasix if he develops recurrent symptoms or weight gain. Discharge discussed with: patient, nurse - Time Spent with Patient Total time spent providing and/or coordinating discharge services: 28 mins - Discharge Medications Prescriptions: Continued Finasteride [Proscar] 5 mg PO DAILY Fluticasone Propionate Nasal [Flonase] 2 spray NS DAILY Hydrocodone/Acetaminophen [[place] 5-325 Tablet] 1 tab PO Q6H PRN PRN Reason: Pain Simvastatin [Zocor] 80 mg PO HS Donepezil [Aricept] 10 mg PO HS Digoxin [Lanoxin] 0.125 mg PO DAILY Carvedilol 12.5 mg PO BID Allopurinol [Zyloprim 100 MG] 100 mg PO DAILY ALPRAZolam [Xanax 0.25 MG Tablet] 0.25 mg PO BID Aspirin [Adult Aspirin Regimen] 81 mg PO DAILY Warfarin [Coumadin] 2.5 mg PO SUTUTHSA Warfarin [Coumadin] 5 mg PO MOWEFR Escitalopram [Lexapro] 10 mg PO DAILY FluocinoNIDE 0.05% CRM [Lidex] 1 appl TP BID PRN PRN Reason: Rash Colchicine [Colcrys] 0.6 mg PO AD PRN PRN Reason: GOUT ATTACK Furosemide [Lasix] 40 mg PO BID #60 tablet Home Medications: Carvedilol 12.5 mg PO BID 05/22/18 [History] Digoxin [Lanoxin] 0.125 mg PO DAILY 05/22/18 [History] Donepezil [Aricept] 10 mg PO HS 05/22/18 [History] Finasteride [Proscar] 5 mg PO DAILY 05/22/18 [History] Fluticasone Propionate Nasal [Flonase] 2 spray NS DAILY 05/22/18 [History] Hydrocodone/Acetaminophen [[place] 5-325 Tablet] 1 tab PO Q6H PRN 05/22/18 [History] Simvastatin [Zocor] 80 mg PO HS 05/22/18 [History] ALPRAZolam [Xanax 0.25 MG Tablet] 0.25 mg PO BID 10/19/18 [History] Allopurinol [Zyloprim 100 MG] 100 mg PO DAILY 10/19/18 [History] Aspirin [Adult Aspirin Regimen] 81 mg PO DAILY 10/19/18 [History] Colchicine [Colcrys] 0.6 mg PO AD PRN 10/19/18 [History] Escitalopram [Lexapro] 10 mg PO DAILY 10/19/18 [History] FluocinoNIDE 0.05% CRM [Lidex] 1 appl TP BID PRN 10/19/18 [History] Warfarin [Coumadin] 2.5 mg PO SUTUTHSA 10/19/18 [History] Warfarin [Coumadin] 5 mg PO MOWEFR 10/19/18 [History] Furosemide [Lasix] 40 mg PO BID #60 tablet 10/21/18 [Rx] Allergies/Adverse Reactions: Allergy/AdvReac Type Severity Reaction Status Date / Time No Known Allergies Allergy Verified 10/19/18 13:46 Date of admission: 11/05/18 00:45 Primary care physician: Demetris Olivier Consults: 11/05/18 01:02 Consult to Cardiac Rehabilitation-Phase1 [CONS] Routine Comment: Reason for Consult: heart failure Call Completed: Yes Consult to Cardiology [CONS] Routine Comment: Consulting Provider: Cardiology Gaby Reason for Consult: Concern for mild CHF exacerbation in the setting of severe pulmonary hypertension and atrial fibrillation. Call Completed: No Consult to Nurse Navigator [CONS] Routine Comment: - Constitutional Vitals: Temp Pulse Resp BP Pulse Ox 96.2 F L 61 18 164/90 97 11/06/18 09:30 11/06/18 09:30 11/06/18 09:30 11/06/18 09:30 11/06/18 09:30 Exam: General: Alert and oriented 3 HEENT:EOMI, pupils equal, round and reactive. Cardiovascular:Normal S1 with prominent S2. No rubs gallops or murmurs. Lungs: Minimal left basilar crackles but mostly clear to auscultation. No significant pitting LE edema Abdomen:Soft, non-tender, no rigidity. Extremities:no joint swelling or clubbing. Neurological:Normal cognition and motor skills. - Patient Status Disposition: Home, Self-Care Condition: Fair Functional capacity at discharge: independent ambulation Overall status at discharge: patient is progressing back to baseline - Discharge Instructions Instructions: Heart Failure (DC), Atrial Fibrillation (DC), Chronic Obstructive Pulmonary Disease (DC) Follow Up With: Demetris Olivier [Primary Care Provider] - Govind Zuleta MD [Partnered Physician] - Forms: ED Satisfaction Letter - Diet and Activity Activity: resume usual activities as tolerated Diet: low salt diet (1.5L fluid/day)
== END 2018-11-06 12:00 | disposition home or self-care (01) ==
LOC: EMEROOARM 22:02 → 2ANU 22:02 → SUATTDRO 11-05 00:45 → 2ANU 11-05 01:26
PROVIDERS: ADMIT Internal Medicine; ATTEND Internal Medicine

== ENCOUNTER 2019-03-02 14:12 | Inpatient (IN) ==
[2019-03-02] MEDS ORDERED: Furosemide 40 MG/4 ML VIAL IVP ONE (14:23)
[2019-03-02] MEDS ORDERED: *HR* LORazepam 2 MG/ML VIAL IVP ONE (14:28)
[2019-03-02] MEDS: Nitroglycerin 25 MG/250 ML INFUS..BTL IVC SCH (14:39)
--- NOTE | 2019-03-02 14:40 | Emergency Department Note ---
Disposition Clinical Impression: Hypoxia Congestive heart failure Qualifiers: Heart failure type: other Qualified Code(s): I50.9 - Heart failure, unspecified Disposition: Admitted As Inpatient Condition: Fair Referrals: Demetris Olivier [Primary Care Provider] - Forms: ED Satisfaction Letter Time of Disposition: 15:50 General Adult HPI - General Chief complaint: ED Shortness of Breath/Dyspnea Stated complaint: HARIS Time Seen by Provider: 03/02/19 14:14 Source: patient Nursing Notes Reviewed: Yes Vital Signs Reviewed: Yes - History of Present Illness Pain Scale: 0 - Related Data Home Medications Medication Instructions Recorded Confirmed Digoxin [Lanoxin] 0.125 mg PO DAILY 05/22/18 03/02/19 Donepezil [Aricept] 10 mg PO HS 05/22/18 03/02/19 Finasteride [Proscar] 5 mg PO DAILY 05/22/18 03/02/19 Fluticasone Propionate Nasal 2 spray NS DAILY PRN 05/22/18 03/02/19 [Flonase] Hydrocodone/Acetaminophen [[place] 1 tab PO Q6H PRN 05/22/18 03/02/19 5-325 Tablet] Simvastatin [Zocor] 80 mg PO HS 05/22/18 03/02/19 ALPRAZolam [Xanax 0.25 MG Tablet] 0.25 mg PO BID PRN 10/19/18 03/02/19 Aspirin [Adult Aspirin Regimen] 81 mg PO QPM 10/19/18 03/02/19 Colchicine [Colcrys] 0.6 mg PO AD PRN 10/19/18 03/02/19 Escitalopram [Lexapro] 10 mg PO DAILY 10/19/18 03/02/19 Warfarin [Coumadin] 2.5 mg PO SUMOTUWETHFR 10/19/18 03/02/19 Warfarin [Coumadin] 5 mg PO SA 10/19/18 03/02/19 Albuterol Sulfate [Proair Hfa] 2 puff IH Q4H PRN 03/02/19 03/02/19 Allopurinol [Zyloprim] 300 mg PO DAILY 03/02/19 03/02/19 Carvedilol 3.125 mg PO BID 03/02/19 03/02/19 Fluticasone/Umeclidin/Vilanter 1 puff IH DAILY 03/02/19 03/02/19 [Trelegy Ellipta 100-62.5-25] Ipratropium [place] 2 spray NS BID PRN 03/02/19 03/02/19 Lisinopril [Zestril] 10 mg PO DAILY 03/02/19 03/02/19 Potassium Chloride [Klor-Con 10] 10 meq PO DAILY 03/02/19 03/02/19 Previous Rx's Medication Instructions Recorded Furosemide [Lasix] 40 mg PO BID #60 tablet 10/21/18 Allergies Allergy/AdvReac Type Severity Reaction Status Date / Time No Known Allergies Allergy Verified 10/19/18 13:46 Past Medical History - Past Medical History Medical history: Reports: atrial fibrillation, CHF, COPD, hypertension, renal disease, other Surgical history: Reports: knee replacement, orthopedic, other, pacemaker Psychiatric history: Reports: anxiety, depression - Social History Smoking Status: Former smoker Smokeless Tobacco Status: Yes Alcohol use: Reports: occasionally Drug use: Reports: none Physical Exam - General General appearance: alert Course Vital Signs Temperature 98.0 F 03/02/19 14:16 Pulse Rate 101 03/02/19 14:16 Respiratory Rate 22 03/02/19 14:16 O2 Sat by Pulse Oximetry 86 03/02/19 14:16 Temperature 98.0 F 03/02/19 14:19 Pulse Rate 61 03/02/19 16:19 Respiratory Rate 20 03/02/19 16:19 Blood Pressure 132/79 03/02/19 16:19 O2 Sat by Pulse Oximetry 96 03/02/19 16:19 Oxygen Delivery Oxygen Delivery Nasal Cannula Medical Decision Making - Lab Data Result diagrams: 03/02/19 14:19 03/02/19 14:19 Lab Results 03/02/19 03/02/19 03/02/19 Range/Units 14:19 14:19 14:19 WBC 8.1 (4.3-11.1) K/mcL RBC 4.27 (4.19-5.50) M/mcL Hgb 12.7 L (12.9-16.9) g/dL Hct 43.5 (37.5-50.1) % MCV 101.9 H (83.0-100.0) fL MCH 29.7 (28.0-33.3) pg MCHC 29.2 L (31.6-35.5) g/dL RDW 16.1 H (11.5-14.5) % Plt Count 169 (140-400) K/mcL MPV 11.0 (9.4-12.4) fL Immature Gran % 0.4 (0-4) % Seg Neutrophils % 72.0 % Lymphocytes % 14.5 % Monocytes % 10.3 % Eosinophils % 2.4 % Basophils % 0.4 % Neutrophils # 5.8 (1.6-8.9) K/mcL Lymphocytes # 1.2 (0.6-4.6) K/mcL Monocytes # 0.8 (0.0-1.3) K/mcL Eosinophils # 0.2 (0.0-0.6) K/mcL Basophils # 0.0 (0.0-0.2) K/mcL PT (9.4-12.1) Seconds INR Sodium 142 (136-145) mEq/L Potassium 4.4 (3.5-5.1) mEq/L Chloride 98 (98-107) mEq/L Carbon Dioxide 38 H (23-29) mEq/L BUN 25 H (8-23) mg/dL Creatinine 1.25 (0.70-1.30) mg/dL Est GFR ( Amer) > 60 (> 60) Est GFR (Non-Af Amer) 55 L (> 60) BUN/Creatinine Ratio 20 (6-26) Glucose 115 H (70-105) mg/dL Calculated Osmolality 299 (280-300) Lactic Acid (0.5-2.2) mmol/L Calcium 8.8 (8.6-10.3) mg/dL Phosphorus (2.7-4.5) mg/dL Magnesium (1.6-2.6) mg/dL Troponin I 0.03 (< 0.04) ng/mL B-Natriuretic Peptide 687 H (Less than 100) pg/mL 03/02/19 03/02/19 03/02/19 Range/Units 14:19 15:39 15:39 WBC (4.3-11.1) K/mcL RBC (4.19-5.50) M/mcL Hgb (12.9-16.9) g/dL Hct (37.5-50.1) % MCV (83.0-100.0) fL MCH (28.0-33.3) pg MCHC (31.6-35.5) g/dL RDW (11.5-14.5) % Plt Count (140-400) K/mcL MPV (9.4-12.4) fL Immature Gran % (0-4) % Seg Neutrophils % % Lymphocytes % % Monocytes % % Eosinophils % % Basophils % % Neutrophils # (1.6-8.9) K/mcL Lymphocytes # (0.6-4.6) K/mcL Monocytes # (0.0-1.3) K/mcL Eosinophils # (0.0-0.6) K/mcL Basophils # (0.0-0.2) K/mcL PT 18.7 H (9.4-12.1) Seconds INR 1.6 Sodium (136-145) mEq/L Potassium (3.5-5.1) mEq/L Chloride (98-107) mEq/L Carbon Dioxide (23-29) mEq/L BUN (8-23) mg/dL Creatinine (0.70-1.30) mg/dL Est GFR ( Amer) (> 60) Est GFR (Non-Af Amer) (> 60) BUN/Creatinine Ratio (6-26) Glucose (70-105) mg/dL Calculated Osmolality (280-300) Lactic Acid 1.3 (0.5-2.2) mmol/L Calcium (8.6-10.3) mg/dL Phosphorus 3.1 (2.7-4.5) mg/dL Magnesium 2.4 (1.6-2.6) mg/dL Troponin I (< 0.04) ng/mL B-Natriuretic Peptide (Less than 100) pg/mL Critical Care Time Critical Care Time: Yes Total Critical Care Time: 40 Attestation: Critical care performed: Time is exclusive of separately billable procedures. Time includes: direct patient care, patient reassessment, coordination of patient care, interpretation of data (laboratory data, radiology data, and respiratory data), review of patient's medical records, medical consultation and documentation of patient care. Procedures included in critical care time: Procedures excluded from critical care time: Attestation Statement - Attestation Attestation: I examined this patient and my medical decision-making was reviewed with the Resident Physician. I agree with the documented findings, disposition and treatment plan as described except to the extent set forth below. Patient to the ED with shortness of breath. Increasing over the past 2 days. History of CHF. On examination he is breathing comfortably on a BiPAP. Lungs with rales. Decreased. Plan. Patient tolerated BiPAP at this time. Settings 10/5. 400 tidal volumes. Cardiac workup, diaphoresis, admit. EKG reviewed with the resident. Paced at 64 with no change in QRS morphology compared to prior EKG in December. Patient improved. Chest x-ray read as a possible infiltrate. We did send a lactic acid, blood cultures, and place him on antibiotics for community required pneumonia. Patient is admitted to medicine. Chest X-Ray 03/02/19 14:52 IMPRESSION: Left basilar opacity, atelectasis versus asymmetrical edema or consolidated pneumonia. Stable enlargement of the cardiac silhouette/cardiomegaly. D/ / Aniceto Medel MD / Aniceto Medel MD Interpreting Provider: Aniceto Medel MD
[2019-03-02 14:45] LABS: Basophils % 0.4 %; Eosinophils # 0.2 K/mcL (0.0-0.6); Eosinophils % 2.4 %; Hematocrit 43.5 % (37.5-50.1); Hemoglobin 12.7 g/dL (12.9-16.9); Immature Granulocytes % 0.4 % (0-4); Lymphocytes # 1.2 K/mcL (0.6-4.6); Lymphocytes % 14.5 %; Mean Corpuscular HGB Conc 29.2 g/dL (31.6-35.5); Mean Corpuscular Hemoglobin 29.7 pg (28.0-33.3); Mean Corpuscular Volume 101.9 fL (83.0-100.0); Monocytes # 0.8 K/mcL (0.0-1.3); Monocytes % 10.3 %; Neutrophils # 5.8 K/mcL (1.6-8.9); Platelet Count 169 K/mcL (140-400); Red Blood Count 4.27 M/mcL (4.19-5.50); Red Cell Distribution Width 16.1 % (11.5-14.5); White Blood Count 8.1 K/mcL (4.3-11.1)
--- NOTE | 2019-03-02 15:03 | Emergency Department Note ---
Disposition Clinical Impression: Hypoxia Congestive heart failure Qualifiers: Heart failure type: other Qualified Code(s): I50.9 - Heart failure, unspecified Disposition: Admitted As Inpatient Condition: Fair Referrals: Demetris Olivier [Primary Care Provider] - Forms: ED Satisfaction Letter Time of Disposition: 15:51 General Adult HPI - General Chief complaint: ED Shortness of Breath/Dyspnea Stated complaint: HARIS Time Seen by Provider: 03/02/19 14:14 Source: patient Mode of arrival: wheelchair Limitations: no limitations Nursing Notes Reviewed: Yes Vital Signs Reviewed: Yes - History of Present Illness HPI Narrative: 83-year-old male with significant past medical history of CHF and atrial fibrillation currently on Coumadin presenting to the emergency department chief complaint of water retention and low oxygen levels. Patient states over the past few days he has been progressively retaining more water. He went to his primary care physician today and was found to have an oxygen saturation in the mid 80s on 4 L nasal cannula and was sent here for further evaluation. Patient normally wears 2 L nasal cannula. Patient denies any fevers, sputum production or chest pain. Pain Scale: 0 - Related Data Home Medications Medication Instructions Recorded Confirmed Carvedilol 12.5 mg PO BID 05/22/18 11/04/18 Digoxin [Lanoxin] 0.125 mg PO DAILY 05/22/18 11/04/18 Donepezil [Aricept] 10 mg PO HS 05/22/18 11/04/18 Finasteride [Proscar] 5 mg PO DAILY 05/22/18 11/04/18 Fluticasone Propionate Nasal 2 spray NS DAILY 05/22/18 11/04/18 [Flonase] Hydrocodone/Acetaminophen [[place] 1 tab PO Q6H PRN 05/22/18 11/04/18 5-325 Tablet] Simvastatin [Zocor] 80 mg PO HS 05/22/18 11/04/18 ALPRAZolam [Xanax 0.25 MG Tablet] 0.25 mg PO BID 10/19/18 11/04/18 Allopurinol [Zyloprim 100 MG] 100 mg PO DAILY 10/19/18 11/04/18 Aspirin [Adult Aspirin Regimen] 81 mg PO DAILY 10/19/18 11/04/18 Colchicine [Colcrys] 0.6 mg PO AD PRN 10/19/18 11/04/18 Escitalopram [Lexapro] 10 mg PO DAILY 10/19/18 11/04/18 FluocinoNIDE 0.05% CRM [Lidex] 1 appl TP BID PRN 10/19/18 11/04/18 Warfarin [Coumadin] 2.5 mg PO SUTUTHSA 10/19/18 11/04/18 Warfarin [Coumadin] 5 mg PO MOWEFR 10/19/18 11/04/18 Previous Rx's Medication Instructions Recorded Furosemide [Lasix] 40 mg PO BID #60 tablet 10/21/18 Allergies Allergy/AdvReac Type Severity Reaction Status Date / Time No Known Allergies Allergy Verified 10/19/18 13:46 All systems ED: reviewed and negative except as stated. Constitutional: Denies: fever Eyes: Reports: as per HPI ENT ED: Reports: as per HPI Cardiovascular: Reports: dyspnea on exertion. Denies: chest pain Respiratory: Reports: dyspnea Gastrointestinal: Denies: abdominal pain Genitourinary: Reports: as per HPI Musculoskeletal: Reports: as per HPI Integumentary: Reports: as per HPI Neurological: Reports: as per HPI Psychiatric: Reports: as per HPI Endocrine: Reports: as per HPI Hematological/Lymphatic: Reports: as per HPI Allergic/Immunologic: Reports: as per HPI Past Medical History - Past Medical History Attestation: Yes The following information was validated with the patient. Medical history: Reports: atrial fibrillation, CHF, COPD, hypertension, renal disease, other Surgical history: Reports: knee replacement, orthopedic, other, pacemaker Psychiatric history: Reports: anxiety, depression - Social History Smoking Status: Former smoker Smokeless Tobacco Status: Yes Alcohol use: Reports: occasionally Drug use: Reports: none Physical Exam - General Limitations: no limitations General appearance: alert, in no apparent distress - Head Head exam: atraumatic, normocephalic, normal inspection - Eye Eye exam: Absent: scleral icterus - ENT ENT exam: mucous membranes moist - Neck Neck exam: Present: full ROM - Chest Chest inspection: Present: symmetric chest wall rise - Respiratory Respiratory exam: Present: other (Rhonchi throughout) - Cardiovascular Cardiovascular exam: Present: tachycardia - Abdominal Exam Abdominal exam: Present: soft, Non-Tender. Absent: distention, guarding, rebound - Extremities Exam Extremities exam: Present: full ROM, other (trace pitting edema b/l LE) - Neurological Exam Neurological exam: Present: alert, oriented X3 - Psychiatric Psychiatric exam: Present: normal affect - Skin Skin exam: Present: warm Course Course Narrative: 83 year old male presenting with hypoxia and fluid retention. In the room he is alert and oriented 3. Oxygen saturation upper 80s on nasal cannula. Physical exam is significant for coarse breath sounds throughout and some trace bilateral lower extremity edema. Concern for pulmonary edema. We will place the patient on BiPAP, a nitro drip and Lasix. Disposition will be admission pending results. Patient agrees with this plan. - Reevaluation(s) Reevaluation #1: Patient's laboratory analysis unchanged from baseline. Mildly elevated BNP. Chest x-ray shows edema and possible infiltrate. Will cover patient with rocephin and azithro. At this time we will plan to admit the patient for further treatment for his CHF exacerbation and possible community acquired pneumonia. Patient remains alert and oriented 3 and hemodynamically stable. Patient agrees with this plan. I spoke with the hospitalist second crusher Dr. Tang who agrees to accept the patient at this time. He is requesting a pro-calcitonin be ordered. This is completed. Vital Signs Temperature 98.0 F 03/02/19 14:16 Pulse Rate 101 03/02/19 14:16 Respiratory Rate 22 03/02/19 14:16 O2 Sat by Pulse Oximetry 86 03/02/19 14:16 Temperature 98.0 F 03/02/19 14:19 Pulse Rate 60 03/02/19 15:46 Respiratory Rate 20 03/02/19 15:46 Blood Pressure 138/85 03/02/19 15:46 O2 Sat by Pulse Oximetry 97 03/02/19 15:46 Oxygen Delivery Oxygen Delivery Bipap Medical Decision Making - Lab Data Result diagrams: 03/02/19 14:19 03/02/19 14:19 Lab Results 03/02/19 03/02/19 03/02/19 Range/Units 14:19 14:19 14:19 WBC 8.1 (4.3-11.1) K/mcL RBC 4.27 (4.19-5.50) M/mcL Hgb 12.7 L (12.9-16.9) g/dL Hct 43.5 (37.5-50.1) % MCV 101.9 H (83.0-100.0) fL MCH 29.7 (28.0-33.3) pg MCHC 29.2 L (31.6-35.5) g/dL RDW 16.1 H (11.5-14.5) % Plt Count 169 (140-400) K/mcL MPV 11.0 (9.4-12.4) fL Immature Gran % 0.4 (0-4) % Seg Neutrophils % 72.0 % Lymphocytes % 14.5 % Monocytes % 10.3 % Eosinophils % 2.4 % Basophils % 0.4 % Neutrophils # 5.8 (1.6-8.9) K/mcL Lymphocytes # 1.2 (0.6-4.6) K/mcL Monocytes # 0.8 (0.0-1.3) K/mcL Eosinophils # 0.2 (0.0-0.6) K/mcL Basophils # 0.0 (0.0-0.2) K/mcL PT (9.4-12.1) Seconds INR Sodium 142 (136-145) mEq/L Potassium 4.4 (3.5-5.1) mEq/L Chloride 98 (98-107) mEq/L Carbon Dioxide 38 H (23-29) mEq/L BUN 25 H (8-23) mg/dL Creatinine 1.25 (0.70-1.30) mg/dL Est GFR ( Amer) > 60 (> 60) Est GFR (Non-Af Amer) 55 L (> 60) BUN/Creatinine Ratio 20 (6-26) Glucose 115 H (70-105) mg/dL Calculated Osmolality 299 (280-300) Calcium 8.8 (8.6-10.3) mg/dL Troponin I 0.03 (< 0.04) ng/mL B-Natriuretic Peptide 687 H (Less than 100) pg/mL 03/02/19 Range/Units 14:19 WBC (4.3-11.1) K/mcL RBC (4.19-5.50) M/mcL Hgb (12.9-16.9) g/dL Hct (37.5-50.1) % MCV (83.0-100.0) fL MCH (28.0-33.3) pg MCHC (31.6-35.5) g/dL RDW (11.5-14.5) % Plt Count (140-400) K/mcL MPV (9.4-12.4) fL Immature Gran % (0-4) % Seg Neutrophils % % Lymphocytes % % Monocytes % % Eosinophils % % Basophils % % Neutrophils # (1.6-8.9) K/mcL Lymphocytes # (0.6-4.6) K/mcL Monocytes # (0.0-1.3) K/mcL Eosinophils # (0.0-0.6) K/mcL Basophils # (0.0-0.2) K/mcL PT 18.7 H (9.4-12.1) Seconds INR 1.6 Sodium (136-145) mEq/L Potassium (3.5-5.1) mEq/L Chloride (98-107) mEq/L Carbon Dioxide (23-29) mEq/L BUN (8-23) mg/dL Creatinine (0.70-1.30) mg/dL Est GFR ( Amer) (> 60) Est GFR (Non-Af Amer) (> 60) BUN/Creatinine Ratio (6-26) Glucose (70-105) mg/dL Calculated Osmolality (280-300) Calcium (8.6-10.3) mg/dL Troponin I (< 0.04) ng/mL B-Natriuretic Peptide (Less than 100) pg/mL - EKG Data EKG #1 EKG attestation: Yes I reviewed and interpreted this EKG. EKG results narrative: Paced. 64 bpm. [place] interval 62, QRS 142, QTC 443. Compared to previous EKG completed on 12/28/2018 no significant changes
[2019-03-02 15:17] LABS: BUN/Creatinine Ratio 20 (6-26); Blood Urea Nitrogen 25 mg/dL (8-23); Calcium 8.8 mg/dL (8.6-10.3); Carbon Dioxide 38 mEq/L (23-29); Chloride 98 mEq/L (98-107); Glucose 115 mg/dL (70-105); Osmolality,Calculated 299 (280-300); Potassium 4.4 mEq/L (3.5-5.1); Sodium 142 mEq/L (136-145); Troponin I 0.03 ng/mL (< 0.04); eGFR For African Americans > 60 (> 60); eGFR For Non-African Americans 55 (> 60)
[2019-03-02] MEDS ORDERED: Azithromycin 500 MG in 0.9 % Sodium Chloride 250 ML IVPB ONE (15:23)
[2019-03-02] MEDS ORDERED: cefTRIAXone 1,000 MG in Water for inj. (sterile) 10 ML IVP ONE (15:23)
[2019-03-02 15:35] LABS: INR 1.6; Prothrombin Time 18.7 Seconds (9.4-12.1)
[2019-03-02 16:11] LABS: Magnesium 2.4 mg/dL (1.6-2.6); Phosphorous 3.1 mg/dL (2.7-4.5)
[2019-03-02] MEDS ORDERED: Ondansetron 4 MG/2 ML VIAL IVP PRN (16:43)
--- NOTE | 2019-03-02 16:54 | Internal Med History&Physical ---
Date of Encounter: 03/02/19 Time of Encounter: 16:20 Internal Medicine - H&P: HPI Chief complaint: Dyspnea Admitted From: Home Plans for Post Hospital Care: Home History of present illness: Mr. Catherine is a 83 year old male with history of copd on 2L,HFpEF, hypertension, diabetes, hyperlipidemia, atrial fibrillation on Coumadin and s/p PM, pulmonary hypertension, CKD stage III who came to the hospital for shortness of breath started yesterday and progressively got worse. Patient uses 2 L of oxygen and in the morning he had to increase it to 4 L. He also noted mild leg swelling, orthopnea and PND. He denied any recent sick contacts but endorsed chronic cough and white sputum production. He had no fever, chills or night sweats. He is not compliant with low sodium diet as he ate ham, monegasque fries yesterday. He is on Lasix twice daily and he denied skipping any doses. In the ER, patient was afebrile, slightly hypertensive. He was placed on BiPAP and nitro drip. Chest x-ray revealed left basilar opacity, atelectasis versus edema versus consolidative pneumonia. EKG with ventricular paced rhythm. Blood work was significant for elevated BNP. I was able to transition him to nasal cannula and decrease his nitro drip to 30. Patient was also received Rocephin and azithromycin while in the ED. Past Med Surg Social Fam HX - Past Medical History Source: patient Medical history: atrial fibrillation, CHF, COPD, hypertension, renal disease, other Psychiatric history: anxiety, depression - Past Surgical History Surgical History: knee replacement, orthopedic, other, pacemaker Additional surgical history: Rt Shoulder replacement, back surgery, bilat partial knee surgery - Social History Smoking Status: Former smoker Smokeless Tobacco Status: Yes Alcohol use: occasionally Drug use: none Current living situation: Home - Independent Activity Level: Uses cane/walker Recent Out of Country Travel Within the Last 8 Weeks: No Exposure or Possible Exposure to Illness During Travel: No - Family History Father Living Status: Mother Living Status: - Additional Family History Additional family history: Reviewed and noncontributory. Internal Medicine - H&P: Meds Digoxin [Lanoxin] 0.125 mg PO DAILY 05/22/18 [History] Donepezil [Aricept] 10 mg PO HS 05/22/18 [History] Finasteride [Proscar] 5 mg PO DAILY 05/22/18 [History] Fluticasone Propionate Nasal [Flonase] 2 spray NS DAILY PRN 05/22/18 [History] Hydrocodone/Acetaminophen [[place] 5-325 Tablet] 1 tab PO Q6H PRN 05/22/18 [History] Simvastatin [Zocor] 80 mg PO HS 05/22/18 [History] ALPRAZolam [Xanax 0.25 MG Tablet] 0.25 mg PO BID PRN 10/19/18 [History] Aspirin [Adult Aspirin Regimen] 81 mg PO QPM 10/19/18 [History] Colchicine [Colcrys] 0.6 mg PO AD PRN 10/19/18 [History] Escitalopram [Lexapro] 10 mg PO DAILY 10/19/18 [History] Warfarin [Coumadin] 2.5 mg PO SUMOTUWETHFR 10/19/18 [History] Warfarin [Coumadin] 5 mg PO SA 10/19/18 [History] Furosemide [Lasix] 40 mg PO BID #60 tablet 10/21/18 [Rx] Albuterol Sulfate [Proair Hfa] 2 puff IH Q4H PRN 03/02/19 [History] Allopurinol [Zyloprim] 300 mg PO DAILY 03/02/19 [History] Carvedilol 3.125 mg PO BID 03/02/19 [History] Fluticasone/Umeclidin/Vilanter [Trelegy Ellipta 100-62.5-25] 1 puff IH DAILY 03/02/19 [History] Ipratropium [place] 2 spray NS BID PRN 03/02/19 [History] Lisinopril [Zestril] 10 mg PO DAILY 03/02/19 [History] Potassium Chloride [Klor-Con 10] 10 meq PO DAILY 03/02/19 [History] Allergy/AdvReac Type Severity Reaction Status Date / Time No Known Allergies Allergy Verified 10/19/18 13:46 ROS unobtainable: due to endotracheal tube All Systems PM: A 10-system review of systems was performed and is negative for pertinent findings except as documented above in the HPI. - Constitutional Vitals: Temp Pulse Resp BP Pulse Ox 98.0 F 65 18 108/61 92 03/02/19 14:19 03/02/19 16:34 03/02/19 16:34 03/02/19 16:34 03/02/19 16:34 Exam: General: Patient is alert, oriented 3. No distress Head: Atraumatic, normal inspection, normocephalic. Eye: EOMI, PERRLA, no scleral icterus noted. ENT: Mucous membranes moist. Neck: Normal inspection, Respiratory: Bilateral crackles up to mid lungs Cardiovascular: Regular rate and regular rhythm, No murmurs, rubs, or gallops. GI: Soft, nondistended, normal bowel sounds. Extremities:No joint swelling, pedal edema, or tenderness noted. Neurological: Alert, oriented 3, no focal deficits. Psychiatric: normal affect, normal mood. Skin: Dry, intact, warm. Normal color. No rashes. Internal Med - H&P Results - Labs CBC & Chem 7: 03/02/19 14:19 03/02/19 14:19 Labs: Short CBC 03/02/19 Range/Units 14:19 WBC 8.1 (4.3-11.1) K/mcL Hgb 12.7 L (12.9-16.9) g/dL Hct 43.5 (37.5-50.1) % Plt Count 169 (140-400) K/mcL Neutrophils # 5.8 (1.6-8.9) K/mcL BMP 03/02/19 14:19 Sodium 142 Potassium 4.4 Chloride 98 Carbon Dioxide 38 H BUN 25 H Creatinine 1.25 Glucose 115 H Calcium 8.8 Cardiac Enzymes 03/02/19 Range/Units 14:19 Troponin I 0.03 (< 0.04) ng/mL - EKG Data -: EKG Interpreted by Myself (Ventricular paced rhythm) Rate: normal - EKG Data Prior EKG available for review: yes When compared to previous EKG: there is no significant change - Impressions ITS Impressions Chest X-Ray 03/02/19 14:52 IMPRESSION: Left basilar opacity, atelectasis versus asymmetrical edema or consolidated pneumonia. Stable enlargement of the cardiac silhouette/cardiomegaly. D/ / Aniceto Medel MD / Aniceto Medel MD Interpreting Provider: Aniceto Medel MD - Diagnostic Studies Chest x-ray Status: image reviewed by me (Pulmonary congestion) - Assessment and Plan (1) Acute respiratory failure with hypoxia Current Visit: Yes Status: Acute (2) Acute diastolic congestive heart failure Current Visit: Yes Status: Acute (3) DVT prophylaxis Current Visit: Yes Status: Acute (4) Atrial fibrillation Current Visit: Yes Status: Chronic Qualifiers: Atrial fibrillation type: chronic Qualified Code(s): I48.2 - Chronic atrial fibrillation (5) Chronic kidney disease, stage III (moderate) Current Visit: Yes Status: Chronic - Summary of Assessment and Plan Summary of Assessment and Plan: Mr. Catherine is a 83 year old male with history of copd on 2L, HFpEF, hypertension, diabetes, hyperlipidemia, atrial fibrillation on Coumadin and s/p PM, pulmonary hypertension, CKD who presented due to progressive dyspnea. Acute hypoxic respiratory failure: On 4L now, off Bipap. Likely from decompensated HFpEF but can't r/u PNA. Will check CT scan since CXR wasn't conclusive. Ordered procalictonin level, legionella and S.pna Ags, and BCx. Continue with LASIX 40 mg IVBID. We will add antibiotics based on the CT scan findings. Wean off O2. Acute decompensated HFpEF: Likely from PNA vs diet non-compliance. Continue Lasix, I&O, DAILY weight, restricted fluid. Troponin X1 is negative, will check another one. Will check limited Echo. A/fib s/p PM: Continue digoxin, BB. Pharmacy to help with the Coumadin. Check INR tomorrow COPD: Continue home inhalers Gout: Continue home medication DVT prophylaxis: coumadin - Time Spent With Patient Total time spent is greater than 50% in coordination of care (as documented) at patient's floor/unit and/or counseling patient:
[2019-03-02] MEDS ORDERED: NON-FORMULARY MEDICATION 1 EACH EACH (Ipratropium Bromide 2 SPRAY) NS PRN (17:04)
[2019-03-02] MEDS ORDERED: Fluticasone Propionate Nasal 50 MCG/SPRAY BOTTLE NS PRN (17:04)
[2019-03-02] MEDS ORDERED: Warfarin perPT PO PRN (18:00)
[2019-03-02] MEDS: *HR* HYDROcodone/Acet 5/325 mg TABLET PO PRN (19:06)
[2019-03-02] MEDS ORDERED: *HR* Warfarin 2.5 MG TABLET PO ONE (19:54)
[2019-03-02] MEDS: Aspirin Enteric Coated 81 MG Tablet PO SCH (20:40)
[2019-03-03] MEDS: Nitroglycerin 25 MG/250 ML INFUS..BTL IVC SCH (03:15)
[2019-03-03 05:42] LABS: Basophils % 0.3 %
[2019-03-03 05:44] LABS: Eosinophils # 0.2 K/mcL (0.0-0.6); Hematocrit 37.3 % (37.5-50.1); Hemoglobin 10.7 g/dL (12.9-16.9); Immature Granulocytes % 0.4 % (0-4); Lymphocytes # 1.4 K/mcL (0.6-4.6); Lymphocytes % 19.1 %; Mean Corpuscular HGB Conc 28.7 g/dL (31.6-35.5); Mean Corpuscular Volume 104.5 fL (83.0-100.0); Mean Platelet Volume 11.2 fL (9.4-12.4); Neutrophils # 4.5 K/mcL (1.6-8.9); Nucleated Red Blood Cells 0.3 /100 WBC (0); Platelet Count 135 K/mcL (140-400); Red Blood Count 3.57 M/mcL (4.19-5.50); Red Cell Distribution Width 16.1 % (11.5-14.5); Segmented Neutrophils % 63.2 %; White Blood Count 7.1 K/mcL (4.3-11.1)
[2019-03-03 05:49] LABS: INR 1.5; Prothrombin Time 17.2 Seconds (9.4-12.1)
[2019-03-03 05:59] LABS: BUN/Creatinine Ratio 21 (6-26); Blood Urea Nitrogen 27 mg/dL (8-23); Calcium 8.4 mg/dL (8.6-10.3); Carbon Dioxide 39 mEq/L (23-29); Chloride 99 mEq/L (98-107); Glucose 100 mg/dL (70-105); Magnesium 2.4 mg/dL (1.6-2.6); Osmolality,Calculated 299 (280-300); Potassium 4.5 mEq/L (3.5-5.1); Sodium 142 mEq/L (136-145); eGFR For African Americans > 60 (> 60); eGFR For Non-African Americans 52 (> 60)
[2019-03-03 06:10] LABS: Hypochromasia Present (Not Present); Platelet Estimate Slight Decrease (Normal)
[2019-03-03] MEDS: Budesonide/Formoterol 80/4.5 1 PUFF INH IH SCH ×2 (08:04→19:34)
[2019-03-03] MEDS: *HR* Digoxin 0.125 MG TABLET PO SCH (08:35)
[2019-03-03] MEDS: Finasteride 5 MG TABLET PO SCH (08:35)
[2019-03-03] MEDS: *HR* HYDROcodone/Acet 5/325 mg TABLET PO PRN (08:36)
[2019-03-03] MEDS ORDERED: Furosemide 40 MG/4 ML VIAL IVP SCH (09:00)
[2019-03-03] MEDS ORDERED: NON-FORMULARY MEDICATION 1 EACH EACH (Fluticasone/Umeclidin/Vilanter [Trelegy Ellipta 100- AER SCH (09:00)
--- NOTE | 2019-03-03 12:25 | Internal Med Progress Note ---
Hospitalist Progress Note - Encounter Date of Encounter: 03/03/19 Time of Encounter: 10:25 - Subjective Interval History: No major events overnight. Patient was seen this a.m. He denied fever, chills or night sweats. He has no nausea, vomiting or abdominal pain. Patient denied chest pain, shortness of breath or palpitation. - Exam Vitals: Temp Pulse Resp BP Pulse Ox 97.6 F 61 18 127/68 98 03/03/19 06:28 03/03/19 08:45 03/03/19 08:08 03/03/19 10:58 03/03/19 08:08 Exam: General: Patient is alert, oriented 3. No distress Head: Atraumatic, normal inspection, normocephalic. Eye: EOMI, PERRLA, no scleral icterus noted. ENT: Mucous membranes moist. Neck: Normal inspection, Respiratory: Bibasilar crackles Cardiovascular: Regular rate and regular rhythm, No murmurs, rubs, or gallops. GI: Soft, nondistended, normal bowel sounds. Extremities:No joint swelling, pedal edema, or tenderness noted. Neurological: Alert, oriented 3, no focal deficits. Psychiatric: normal affect, normal mood. Skin: Dry, intact, warm. Normal color. No rashes. - Assessment and Plan (1) Acute respiratory failure with hypoxia Current Visit: Yes Status: Acute (2) Acute diastolic congestive heart failure Current Visit: Yes Status: Acute (3) DVT prophylaxis Current Visit: Yes Status: Acute (4) Atrial fibrillation Current Visit: Yes Status: Chronic (5) Chronic kidney disease, stage III (moderate) Current Visit: Yes Status: Chronic - Summary of Assessment and Plan Summary of Assessment and Plan: Mr. Catherine is a 83 year old male with history of copd on 2L, HFpEF, hypertension, diabetes, hyperlipidemia, atrial fibrillation on Coumadin and s/p PM, pulmonary hypertension, CKD who presented due to progressive dyspnea. Acute hypoxic respiratory failure: On baseline 2L now, off Bipap. Likely from decompensated HFpEF. CT chest withou PNA. procalictonin level is normal, legionella and S.pna Ags are -. Continue with LASIX 40 mg BID po Acute decompensated HFpEF: Likely from diet non-compliance. Continue Lasix, I&O, DAILY weight, restricted fluid. Troponin X2 is negative. limited Echo with preserved EF. Off nitro gtt. CKD stage III: Cr bl 1.2-1.3. At baseline today. A/fib s/p PM: Continue digoxin, BB. Pharmacy to help with the Coumadin. Check INR tomorrow COPD: Continue home inhalers Gout: Continue home medication DVT prophylaxis: coumadin - Time Spent with Patient Total time spent is greater than 50% in coordination of care (as documented) at patient's floor/unit and/or counseling patient: Plan of Care Discussed with: patient Internal Medicine: Result - Labs CBC & Chem 7: 03/03/19 04:32 03/03/19 04:32 Labs: Short CBC 03/02/19 03/03/19 Range/Units 14:19 04:32 WBC 8.1 7.1 (4.3-11.1) K/mcL Hgb 12.7 L 10.7 L D (12.9-16.9) g/dL Hct 43.5 37.3 L (37.5-50.1) % Plt Count 169 135 L (140-400) K/mcL Neutrophils # 5.8 4.5 (1.6-8.9) K/mcL BMP 03/02/19 03/03/19 14:19 04:32 Sodium 142 142 Potassium 4.4 4.5 Chloride 98 99 Carbon Dioxide 38 H 39 H BUN 25 H 27 H Creatinine 1.25 1.31 H Glucose 115 H 100 Calcium 8.8 8.4 L Cardiac Enzymes 03/02/19 03/02/19 Range/Units 14:19 18:05 Troponin I 0.03 0.03 (< 0.04) ng/mL - ABG Interpretation ABG results: PT/INR, D-dimer PT 17.2 Seconds (9.4-12.1) H 03/03/19 04:32 - Impressions Impressions Chest X-Ray 03/02/19 14:52 IMPRESSION: Left basilar opacity, atelectasis versus asymmetrical edema or consolidated pneumonia. Stable enlargement of the cardiac silhouette/cardiomegaly. D/ / Aniceto Medel MD / Aniceto Medel MD Interpreting Provider: Aniceto Medel MD Chest CT 03/02/19 20:28 IMPRESSION: Cardiomegaly. Elevation left hemidiaphragm with left basilar atelectasis versus scarring appearing similar to prior exam. D/ / Randy Rankin / Randy Rankin Interpreting Provider: Randy Rankin Echocardiogram Limited Views 03/02/19 21:57 Impressions: LVEF 60%. Normal LV chamber size and function. Mild concentric left ventricular hypertrophy. Atypical septal motion consistent with bundle branch block. Left Ventricular Wall Motion: Rest Echo Findings All wall segments showed normal motion. Findings: Study Quality * Technically adequate exam. ECG Findings * Paced rhythm. Left Ventricle * LVEF 60%. * Normal LV chamber size and function. * Mild concentric left ventricular hypertrophy. * Atypical septal motion consistent with bundle branch block. Pericardium * The pericardium appears normal. Device lead * A device lead was visualized in the right atrium and right ventricle. Consult Discharge Plan - Plan Referrals: Demetris Olivier [Primary Care Provider] - (4) Atrial fibrillation Qualifiers: Atrial fibrillation type: chronic Qualified Code(s): I48.2 - Chronic atrial fibrillation
--- NOTE | 2019-03-03 15:05 | Electrocardiograph Report ---
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
[2019-03-03] MEDS: Aspirin Enteric Coated 81 MG Tablet PO SCH (17:34)
[2019-03-03] MEDS: Furosemide 40 MG TABLET PO SCH (17:34)
[2019-03-03] MEDS ORDERED: *HR* Warfarin 5 MG TABLET PO ONE (18:00)
[2019-03-04 07:44] LABS: INR 1.5; Prothrombin Time 17.3 Seconds (9.4-12.1)
[2019-03-04 07:55] LABS: BUN/Creatinine Ratio 21 (6-26); Blood Urea Nitrogen 28 mg/dL (8-23); Calcium 8.9 mg/dL (8.6-10.3); Carbon Dioxide 38 mEq/L (23-29); Chloride 98 mEq/L (98-107); Glucose 95 mg/dL (70-105); Osmolality,Calculated 299 (280-300); Potassium 4.3 mEq/L (3.5-5.1); Sodium 142 mEq/L (136-145); eGFR For African Americans > 60 (> 60); eGFR For Non-African Americans 51 (> 60)
[2019-03-04] MEDS: Furosemide 40 MG TABLET PO SCH (09:19)
[2019-03-04] MEDS: Finasteride 5 MG TABLET PO SCH (09:21)
[2019-03-04] MEDS: *HR* Digoxin 0.125 MG TABLET PO SCH (09:22)
--- NOTE | 2019-03-04 10:34 | Internal Med Progress Note ---
Hospitalist Progress Note - Encounter Date of Encounter: 03/04/19 Time of Encounter: 09:20 - Subjective Interval History: No major events overnight. Patient was seen this a.m. He denied fever, chills or night sweats. He has no nausea, vomiting or abdominal pain. Patient denied chest pain, shortness of breath or palpitation. - Exam Vitals: Temp Pulse Resp BP Pulse Ox 98.4 F 59 16 157/83 96 03/04/19 06:35 03/04/19 06:35 03/04/19 06:35 03/04/19 06:35 03/04/19 06:35 Exam: General: Patient is alert, oriented 3. No distress Head: Atraumatic, normal inspection, normocephalic. Eye: EOMI, PERRLA, no scleral icterus noted. ENT: Mucous membranes moist. Neck: Normal inspection, Respiratory: Bibasilar crackles Cardiovascular: Regular rate and regular rhythm, No murmurs, rubs, or gallops. GI: Soft, nondistended, normal bowel sounds. Extremities:No joint swelling, pedal edema, or tenderness noted. Neurological: Alert, oriented 3, no focal deficits. Psychiatric: normal affect, normal mood. Skin: Dry, intact, warm. Normal color. No rashes. - Assessment and Plan (1) Acute respiratory failure with hypoxia Current Visit: Yes Status: Resolved (2) Acute diastolic congestive heart failure Current Visit: Yes Status: Resolved (3) DVT prophylaxis Current Visit: Yes Status: Acute (4) Atrial fibrillation Current Visit: Yes Status: Chronic (5) Chronic kidney disease, stage III (moderate) Current Visit: Yes Status: Chronic - Summary of Assessment and Plan Summary of Assessment and Plan: Mr. Catherine is a 83 year old male with history of copd on 2L, HFpEF, hypertension, diabetes, hyperlipidemia, atrial fibrillation on Coumadin and s/p PM, pulmonary hypertension, CKD who presented due to progressive dyspnea. Acute hypoxic respiratory failure: On baseline 2L now, off Bipap. Likely from decompensated HFpEF. CT chest withou PNA. procalictonin level is normal, legionella and S.pna Ags are -. Continue with LASIX 40 mg BID po Acute decompensated HFpEF: Likely from diet non-compliance. Continue Lasix, I&O, DAILY weight, restricted fluid. Troponin X2 is negative. limited Echo with preserved EF. Off nitro gtt. CKD stage III: Cr bl 1.2-1.3. At baseline today. A/fib s/p PM: Continue digoxin, BB. Pharmacy to help with the Coumadin. INR is subtheraputic. Check INR tomorrow COPD: Continue home inhalers Gout: Continue home medication DVT prophylaxis: coumadin - Time Spent with Patient Total time spent is greater than 50% in coordination of care (as documented) at patient's floor/unit and/or counseling patient: Plan of Care Discussed with: patient Internal Medicine: Result - Labs CBC & Chem 7: 03/03/19 04:32 03/04/19 06:30 Labs: BMP 03/04/19 06:30 Sodium 142 Potassium 4.3 Chloride 98 Carbon Dioxide 38 H BUN 28 H Creatinine 1.33 H Glucose 95 Calcium 8.9 - ABG Interpretation ABG results: PT/INR, D-dimer PT 17.3 Seconds (9.4-12.1) H 03/04/19 06:30 Consult Discharge Plan - Plan Referrals: Demetris Olivier [Primary Care Provider] - (4) Atrial fibrillation Qualifiers: Atrial fibrillation type: chronic Qualified Code(s): I48.2 - Chronic atrial fibrillation
[2019-03-04] MEDS: Budesonide/Formoterol 80/4.5 1 PUFF INH IH SCH ×2 (11:54→20:10)
[2019-03-04] MEDS: Tiotropium 18 MCG inhalation IH SCH (11:55)
[2019-03-04] MEDS: *HR* HYDROcodone/Acet 5/325 mg TABLET PO PRN ×2 (12:48→20:40)
[2019-03-04] MEDS ORDERED: Methyl Salicylate/Menthol 28 GM TUBE TP PRN (13:50)
[2019-03-04] MEDS ORDERED: Trolamine Salicylate/Aloe Vera 35.4 GM TUBE TP PRN (14:30)
[2019-03-04] MEDS: Aspirin Enteric Coated 81 MG Tablet PO SCH (17:37)
[2019-03-04] MEDS ORDERED: *HR* Warfarin 5 MG TABLET PO ONE (18:00)
[2019-03-05 01:09] LABS: INR 1.7; Prothrombin Time 19.5 Seconds (9.4-12.1)
[2019-03-05 01:15] LABS: Calcium 8.7 mg/dL (8.6-10.3); Potassium 4.7 mEq/L (3.5-5.1)
[2019-03-05] MEDS: Budesonide/Formoterol 80/4.5 1 PUFF INH IH SCH ×2 (07:33→20:25)
[2019-03-05] MEDS: Tiotropium 18 MCG inhalation IH SCH (07:34)
[2019-03-05] MEDS: *HR* Digoxin 0.125 MG TABLET PO SCH (08:24)
[2019-03-05] MEDS: Finasteride 5 MG TABLET PO SCH (08:24)
--- NOTE | 2019-03-05 12:11 | Internal Med Progress Note ---
Hospitalist Progress Note - Encounter Date of Encounter: 03/05/19 Time of Encounter: 09:20 - Subjective Interval History: No major events overnight. Patient was seen this a.m. He denied fever, chills or night sweats. He has no nausea, vomiting or abdominal pain. Patient denied chest pain, shortness of breath or palpitation. - Exam Vitals: Temp Pulse Resp BP Pulse Ox 98.1 F 63 17 150/89 90 03/05/19 07:09 03/05/19 07:09 03/05/19 07:34 03/05/19 07:09 03/05/19 08:29 Exam: General: Patient is alert, oriented 3. No distress Head: Atraumatic, normal inspection, normocephalic. Eye: EOMI, PERRLA, no scleral icterus noted. ENT: Mucous membranes moist. Neck: Normal inspection, Respiratory: Bibasilar crackles Cardiovascular: Regular rate and regular rhythm, GI: Soft, nondistended, normal bowel sounds. Extremities:No joint swelling, pedal edema, or tenderness noted. Neurological: Alert, oriented 3, no focal deficits. Psychiatric: normal affect, normal mood. Skin: Dry, intact, warm. Normal color. No rashes. - Assessment and Plan (1) Acute respiratory failure with hypoxia Current Visit: Yes Status: Resolved (2) Acute diastolic congestive heart failure Current Visit: Yes Status: Resolved (3) DVT prophylaxis Current Visit: Yes Status: Acute (4) Atrial fibrillation Current Visit: Yes Status: Chronic (5) Chronic kidney disease, stage III (moderate) Current Visit: Yes Status: Chronic - Summary of Assessment and Plan Summary of Assessment and Plan: Mr. Catherine is a 83 year old male with history of copd on 2L, HFpEF, hypertension, diabetes, hyperlipidemia, atrial fibrillation on Coumadin and s/p PM, pulmonary hypertension, CKD who presented due to progressive dyspnea. Acute hypoxic respiratory failure: On baseline 2L now, off Bipap. Likely from decompensated HFpEF. CT chest withou PNA. procalictonin level is normal, legionella and S.pna Ags are -. Acute decompensated HFpEF: Likely from diet non-compliance. Hold Lasix, I&O, DAILY weight, restricted fluid. Troponin X2 is negative. limited Echo with preserved EF. Off nitro gtt. APOORVA CKD stage III: Cr bl 1.2-1.3. today 1.6, will hold lasix and consult nephrology. check BMP tomorrow. A/fib s/p PM: Continue digoxin, BB. Pharmacy to help with the Coumadin. INR is subtheraputic. Check INR tomorrow COPD: Continue home inhalers Gout: Continue home medication DVT prophylaxis: coumadin - Time Spent with Patient Total time spent is greater than 50% in coordination of care (as documented) at patient's floor/unit and/or counseling patient: Plan of Care Discussed with: patient Internal Medicine: Result - Labs CBC & Chem 7: 03/03/19 04:32 03/05/19 00:38 Labs: BMP 03/05/19 00:38 Sodium 139 Potassium 4.7 Chloride 100 Carbon Dioxide 32 H BUN 37 H Creatinine 1.68 H Glucose 112 H Calcium 8.7 - ABG Interpretation ABG results: PT/INR, D-dimer PT 19.5 Seconds (9.4-12.1) H 03/05/19 00:38 Consult Discharge Plan - Plan Referrals: Demetris Olivier [Primary Care Provider] - (4) Atrial fibrillation Qualifiers: Atrial fibrillation type: chronic Qualified Code(s): I48.2 - Chronic atrial fibrillation
--- NOTE | 2019-03-05 13:45 | Nephrology Consult Note ---
Date of Encounter: 03/05/19 Time of Encounter: 13:44 Assessment and Plan (1) Acute on chronic kidney failure Current Visit: Yes Status: Acute 83-year-old male with past medical history of CKD with initial GFR of 55 on admission with progressive decline in kidney function over 3 days to have a GFR of 39 on 03/05/19 On previous admissions patient with GFR between 40 and 55 APOORVA in presence of Lasix therapy for HFpEF although dosing in hospital has been same as home dosing, patient's Lasix currently held due to decreasing kidney function Postvoid residual of 13 mL making postrenal cause of APOORVA unlikely -UA ordered will follow for results -Urine Na, Urine Urea, Urine Creatinine/protein ratio ordered will follow for results -Strict monitoring of I&Os -Continue to hold Lasix therapy -Encourage oral fluid intake -Hold nephrotoxic medications -Renally dose medications -Renal diet Qualifiers: Acute renal failure type: unspecified Chronic kidney disease stage: stage 3 (moderate) Qualified Code(s): N17.9 - Acute kidney failure, unspecified; N18.3 - Chronic kidney disease, stage 3 (moderate) History of Present Illness - Reason for Consult Consult date: 03/05/19 Acute Kidney Injury - History of Present Illness 83M with significant PMH of CKD stage III, COPD on 2L [place] at home, HFpEF, hypertension, diabetes, atrial fibrillation on Coumadin, pulmonary hypertension who presented to the ED on 03/02/19 for progressive worsening of shortness of breath over the past few days. Patient also complaining of cough with clear sputum production that he describes as thick. Patient is on Lasix twice a day at home and states he has been taking his medications. Patient denies hem aturia, dysuria, or flank pain. Patient does admit to dark colored urine and states it does have a foul smell. Patient is unsure if he has seen a kidney doctor in the past. In the ED patients vitals were temperature of 98, pulse 101, respiratory rate 22, blood pressure of 168/82, and O2 saturation of 97% on BiPAP. Chest x-ray in the ED showed left basilar opacity. CT of the chest with elevation of left hemidiaphragm and basilar atelectasis versus scarring similar to prior exam. Patient was started on nitro drip and given Rocephin and azithromycin in the ED. Lab results significant for a BUN and creatinine of 25 and 1.25 which appears to be better than patient's baseline, GFR of 55, BNP of 687, PT/INR of 18.7 and 1.6. Patient with a negative pro calcitonin and lactic acid. Nephrology consulted due to patient's worsening kidney function since admission with GFR dropping from 55 on 03/02 to 39 today. Past Med Surg Social Fam HX - Past Medical History Medical history: atrial fibrillation, CHF, COPD, hypertension, renal disease, other Psychiatric history: anxiety, depression - Past Surgical History Surgical History: knee replacement, orthopedic, other, pacemaker Additional surgical history: Rt Shoulder replacement, back surgery, bilat partial knee surgery - Social History Smoking Status: Former smoker Smokeless Tobacco Status: Yes Alcohol use: occasionally Drug use: none - Family History Father Living Status: Mother Living Status: Medications and Allergies Digoxin [Lanoxin] 0.125 mg PO DAILY 05/22/18 [History] Donepezil [Aricept] 10 mg PO HS 05/22/18 [History] Finasteride [Proscar] 5 mg PO DAILY 05/22/18 [History] Fluticasone Propionate Nasal [Flonase] 2 spray NS DAILY PRN 05/22/18 [History] Hydrocodone/Acetaminophen [[place] 5-325 Tablet] 1 tab PO Q6H PRN 05/22/18 [History] Simvastatin [Zocor] 80 mg PO HS 05/22/18 [History] ALPRAZolam [Xanax 0.25 MG Tablet] 0.25 mg PO BID PRN 10/19/18 [History] Aspirin [Adult Aspirin Regimen] 81 mg PO QPM 10/19/18 [History] Colchicine [Colcrys] 0.6 mg PO AD PRN 10/19/18 [History] Escitalopram [Lexapro] 10 mg PO DAILY 10/19/18 [History] Warfarin [Coumadin] 2.5 mg PO SUMOTUWETHFR 10/19/18 [History] Warfarin [Coumadin] 5 mg PO SA 10/19/18 [History] Furosemide [Lasix] 40 mg PO BID #60 tablet 10/21/18 [Rx] Albuterol Sulfate [Proair Hfa] 2 puff IH Q4H PRN 03/02/19 [History] Allopurinol [Zyloprim] 300 mg PO DAILY 03/02/19 [History] Carvedilol 3.125 mg PO BID 03/02/19 [History] Fluticasone/Umeclidin/Vilanter [Trelegy Ellipta 100-62.5-25] 1 puff IH DAILY 03/02/19 [History] Ipratropium [place] 2 spray NS BID PRN 03/02/19 [History] Lisinopril [Zestril] 10 mg PO DAILY 03/02/19 [History] Potassium Chloride [Klor-Con 10] 10 meq PO DAILY 03/02/19 [History] Allergy/AdvReac Type Severity Reaction Status Date / Time No Known Allergies Allergy Verified 10/19/18 13:46 Review of Systems Constitutional: no fatigue, no fever(s) Nose, mouth and throat: no headache(s), no neck pain Cardiovascular: dyspnea, no chest pain, no edema, no leg edema Respiratory: cough, dyspnea, excessive phlegm production Gastrointestinal: no abdominal pain, no diarrhea, no nausea, no vomiting Genitourinary Male: urinary frequency, no difficulty urinating, no dysuria, no flank pain, no hematuria (foul smelling urine) Integumentary: no new lesions, no swelling Neurological: no loss of vision, no weakness Psychiatric: no depression, no suicidal ideation Hematologic/Lymphatic: no easy bleeding, no easy bruising Exam - Vital Signs Vital signs: Initial Vital Signs Temp Pulse Resp Pulse Ox 98.0 F 101 22 86 03/02/19 14:16 03/02/19 14:16 03/02/19 14:16 03/02/19 14:16 Vital Signs - Last 8 Hours Temp Pulse Resp BP Pulse Ox 03/05/19 08:29 90 03/05/19 07:34 17 90 03/05/19 07:09 98.1 F 63 16 150/89 95 Intake and Output 03/04/19 03/05/19 03/05/19 23:59 07:59 15:59 Intake Total 600 / 600 Output Total 300 / 300 Balance -300 / 300 600 / 300 Intake: Oral 600 / 600 Output: Urine 300 / 300 Other: Meal Lunch Percent of Meal Consumed 50% # Voids 1 Weight 106 kg Patient Weight 03/05/19 23:59 Weight 106 kg - General Appearance General appearance: well-developed, well-nourished EENT: PERRL, mucous membranes moist Neck: no JVD, supple Respiratory: no kyphosis, clear Cardiology: no edema, normal S1, normal S2 Gastrointestinal: normoactive bowel sounds, no tenderness, no guarding Integumentary: no rash, warm and dry Neurologic: no focal deficit, alert and oriented x3 Musculoskeletal: no deformities, no cyanosis Psychiatric: mood/affect appropriate, cooperative Results - Lab Results 03/03/19 04:32 03/05/19 00:38 Consult Discharge Plan - Plan Referrals: Demetris Olivier [Primary Care Provider] -
[2019-03-05] MEDS ORDERED: *HR* Warfarin 5 MG TABLET PO ONE (18:00)
[2019-03-05] MEDS: Aspirin Enteric Coated 81 MG Tablet PO SCH (18:31)
[2019-03-06 05:54] LABS: INR 1.9; Prothrombin Time 21.3 Seconds (9.4-12.1)
[2019-03-06 06:03] LABS: BUN/Creatinine Ratio 27 (6-26); Blood Urea Nitrogen 30 mg/dL (8-23); Carbon Dioxide 34 mEq/L (23-29); Chloride 100 mEq/L (98-107); Glucose 106 mg/dL (70-105); Osmolality,Calculated 295 (280-300); Potassium 4.9 mEq/L (3.5-5.1); Sodium 139 mEq/L (136-145); eGFR For African Americans > 60 (> 60); eGFR For Non-African Americans > 60 (> 60)
[2019-03-06] MEDS: Tiotropium 18 MCG inhalation IH SCH (07:36)
[2019-03-06] MEDS: Budesonide/Formoterol 80/4.5 1 PUFF INH IH SCH (07:36)
[2019-03-06] MEDS: *HR* Digoxin 0.125 MG TABLET PO SCH (07:45)
[2019-03-06] MEDS: Finasteride 5 MG TABLET PO SCH (07:45)
[2019-03-06] MEDS ORDERED: amLODIPine 5 MG TABLET PO SCH (09:00)
--- NOTE | 2019-03-06 09:00 | Nephrology Progress Note ---
Date of Encounter: 03/06/19 Time of Encounter: 08:55 - Assessment and Plan (1) Acute on chronic kidney failure Current Visit: Yes Status: Acute 83-year-old male with past medical history of CKD with initial GFR of 55 on admission with progressive decline in kidney function over 3 days to have a GFR of 39 on 03/05/19 On previous admissions patient with GFR between 40 and 55 APOORVA in presence of Lasix therapy for HFpEF although dosing in hospital has been same as home dosing, patient's Lasix currently held due to decreasing kidney function Postvoid residual of 13 mL making postrenal cause of APOORVA unlikely -UA with Urine sodium, urea, and creatinine/protein ratio uncollected -Repeat BMP with Creatinine of 1.13, BUN of 30, and GFR of > 60 after holding lasix therapy. -Strict monitoring of I&Os -Continue to hold Lasix therapy in hospital and consider decreasing dose upon discharge as pt states he was taking 80 mg BID prior to admission -Encourage fluid restriction of less than 2L per day at home. -Hold nephrotoxic medications -Renally dose medications -Renal diet -Will sign off as pt renal function has returned to normal Qualifiers: Acute renal failure type: unspecified Chronic kidney disease stage: stage 3 (moderate) Qualified Code(s): N17.9 - Acute kidney failure, unspecified; N18.3 - Chronic kidney disease, stage 3 (moderate) Subjective Interval history: Patient states he is feeling fine today has no point at this time. Patient denies chest pain, shortness breath, cough, nausea, vomiting, fever, chills, or abdominal pain. Patient states about a week prior to admission he was told to take 80 mg of his Lasix twice daily instead of his normal of 40 twice daily. Objective - Vital Signs Vital signs: Vital Signs Temp Pulse Resp BP Pulse Ox 03/06/19 07:40 98.2 F 59 16 145/64 96 03/06/19 07:36 16 96 03/06/19 03:43 98.0 F 60 19 167/94 98 03/06/19 01:09 97.5 F L 54 17 148/80 92 03/05/19 21:36 97.7 F 63 14 163/91 95 03/05/19 20:25 18 96 03/05/19 20:07 173/93 03/05/19 15:19 97.9 F 75 16 156/94 94 Intake and Output 03/05/19 03/06/19 03/06/19 23:59 07:59 15:59 Intake Total 580 / 1180 400 / 400 Output Total 0 / 300 0 / 0 Balance 580 / 880 400 / 400 Intake: Oral 580 / 1180 Free Water 400 / 400 Output: Urine 0 / 300 0 / 0 Other: Meal Buttermilk Percent of Meal Consumed 50% # Voids 1 Weight 103 kg Patient Weight 03/06/19 23:59 Weight 103 kg - General Appearance General appearance: Present: appears started age EENT: Present: PERRL Neck: Present: no JVD, no thyromegaly Cardiology: Present: no murmurs, no edema Gastrointestinal: Present: normoactive bowel sounds, no tenderness, no guarding Integumentary: Present: no rash, warm and dry Neurologic: Present: no focal deficit, alert and oriented x3 Musculoskeletal: Present: no deformities, no erythema Psychiatric: Present: mood/affect appropriate, cooperative - Lab 03/03/19 04:32 03/06/19 04:45 Most recent lab results 03/06/19 04:45 Calcium 9.0 Consult Discharge Plan - Plan Referrals: Demetris Olivier [Primary Care Provider] -
[2019-03-06 12:19] VITALS: BP 141/64
--- NOTE | 2019-03-06 13:27 | Discharge Summary ---
- NOTES TO OUTPATIENT PROVIDER Notes to Outpatient Provider: Patient was admitted for subacute heart failure and was diursied with lasix. Course was complicated by APOORVA which resolved with holding diuresis. Orders not resulted at time of discharge: Pending orders 03/02/19 15:39 Culture,Blood [BC] Stat 03/05/19 14:42 Urinalysis Reflex Cult & Micro [URIN] Routine Date of Encounter: 03/06/19 Time of Encounter: 09:35 - Discharge Diagnosis (1) Acute respiratory failure with hypoxia Priority: Primary Status: Resolved (2) Acute diastolic congestive heart failure Priority: Secondary Status: Resolved (3) DVT prophylaxis Priority: Secondary Status: Acute (4) Atrial fibrillation Priority: Secondary Status: Chronic Qualifiers: Atrial fibrillation type: chronic Qualified Code(s): I48.2 - Chronic atrial fibrillation (5) Chronic kidney disease, stage III (moderate) Priority: Secondary Status: Chronic Hospital course: Mr. Catherine is a 83 year old male with history of copd on 2L, HFpEF, hypertension, diabetes, hyperlipidemia, atrial fibrillation on Coumadin and s/p PM, pulmonary hypertension, CKD stage III who was managed for acute decompensated heart failure. He was there is initially with IV diuresis. His oxygen requirement went down to baseline. His course was complicated by acute kidney injury which resolved with holding diuresis. He was evaluated by physical therapy who recommended home health. Today, patient is clinically and hemodynamically stable. He will be discharged home in stable condition. Discharge discussed with: patient - Time Spent with Patient Total time spent providing and/or coordinating discharge services: 32 minutes - Discharge Medications Prescriptions: New Carvedilol [Coreg] 3.125 mg PO BID #60 tablet Continued Finasteride [Proscar] 5 mg PO DAILY Fluticasone Propionate Nasal [Flonase] 2 spray NS DAILY PRN PRN Reason: Allergy Symptoms Hydrocodone/Acetaminophen [[place] 5-325 Tablet] 1 tab PO Q6H PRN PRN Reason: Pain Simvastatin [Zocor] 80 mg PO HS Donepezil [Aricept] 10 mg PO HS Digoxin [Lanoxin] 0.125 mg PO DAILY ALPRAZolam [Xanax 0.25 MG Tablet] 0.25 mg PO BID PRN PRN Reason: Anxiety Aspirin [Adult Aspirin Regimen] 81 mg PO QPM Warfarin [Coumadin] 2.5 mg PO SUMOTUWETHFR Warfarin [Coumadin] 5 mg PO SA Escitalopram [Lexapro] 10 mg PO DAILY Colchicine [Colcrys] 0.6 mg PO AD PRN PRN Reason: GOUT ATTACK Furosemide [Lasix] 40 mg PO BID #60 tablet Allopurinol [Zyloprim] 300 mg PO DAILY Albuterol Sulfate [Proair Hfa] 2 puff IH Q4H PRN PRN Reason: Shortness Of Breath Fluticasone/Umeclidin/Vilanter [Trelegy Ellipta 100-62.5-25] 1 puff IH DAILY Ipratropium [place] 2 spray NS BID PRN PRN Reason: Nasal Congestion Lisinopril [Zestril] 10 mg PO DAILY Potassium Chloride [Klor-Con 10] 10 meq PO DAILY Discontinued Carvedilol 3.125 mg PO BID Home Medications: Digoxin [Lanoxin] 0.125 mg PO DAILY 05/22/18 [History] Donepezil [Aricept] 10 mg PO HS 05/22/18 [History] Finasteride [Proscar] 5 mg PO DAILY 05/22/18 [History] Fluticasone Propionate Nasal [Flonase] 2 spray NS DAILY PRN 05/22/18 [History] Hydrocodone/Acetaminophen [[place] 5-325 Tablet] 1 tab PO Q6H PRN 05/22/18 [History] Simvastatin [Zocor] 80 mg PO HS 05/22/18 [History] ALPRAZolam [Xanax 0.25 MG Tablet] 0.25 mg PO BID PRN 10/19/18 [History] Aspirin [Adult Aspirin Regimen] 81 mg PO QPM 10/19/18 [History] Colchicine [Colcrys] 0.6 mg PO AD PRN 10/19/18 [History] Escitalopram [Lexapro] 10 mg PO DAILY 10/19/18 [History] Warfarin [Coumadin] 2.5 mg PO SUMOTUWETHFR 10/19/18 [History] Warfarin [Coumadin] 5 mg PO SA 10/19/18 [History] Furosemide [Lasix] 40 mg PO BID #60 tablet 10/21/18 [Rx] Albuterol Sulfate [Proair Hfa] 2 puff IH Q4H PRN 03/02/19 [History] Allopurinol [Zyloprim] 300 mg PO DAILY 03/02/19 [History] Fluticasone/Umeclidin/Vilanter [Trelegy Ellipta 100-62.5-25] 1 puff IH DAILY 03/02/19 [History] Ipratropium [place] 2 spray NS BID PRN 03/02/19 [History] Lisinopril [Zestril] 10 mg PO DAILY 03/02/19 [History] Potassium Chloride [Klor-Con 10] 10 meq PO DAILY 03/02/19 [History] Carvedilol [Coreg] 3.125 mg PO BID #60 tablet 03/06/19 [Rx] Allergies/Adverse Reactions: Allergy/AdvReac Type Severity Reaction Status Date / Time No Known Allergies Allergy Verified 10/19/18 13:46 Date of admission: 03/04/19 11:35 Primary care physician: Demetris Olivier Consults: 03/02/19 23:17 Consult to Fruit Pitter [CONS] Routine Reason for SW Consult: patient wears oxygen through [employer] at home at 4 liters NC patient will need follow up upon D/C 03/04/19 10:34 Consult to Physical Therapy [CONS] Routine Comment: Evaluate, develop and implement POC Reason for Consult: evaluate the need for skilled placement Does patient have active BEDREST order?: No Is patient medically & hemodynamically stable?: Yes 03/05/19 07:54 Consult to Nephrology [CONS] Routine Consulting Provider: Kidney Gaby/YOSELIN/ROGER/GABE Reason for Consult: APOORVA Call Completed: No 03/06/19 12:50 Consult to Nurse Navigator [CONS] Routine Comment: COPD and CHF - Constitutional Vitals: Temp Pulse Resp BP Pulse Ox 97.8 F 59 16 141/64 97 03/06/19 12:15 03/06/19 12:15 03/06/19 12:15 03/06/19 12:15 03/06/19 12:15 Exam: General: Patient is alert, oriented 3. Head: Atraumatic, normal inspection, normocephalic. Eye: EOMI, PERRLA, no scleral icterus noted. ENT: Mucous membranes moist. Neck: Normal inspection, Respiratory: No respiratory distress, rhonchi, or wheezes noted. Cardiovascular: Regular rate and regular rhythm, S1 and S2 audible. No murmurs, rubs, or gallops. GI: Soft, nondistended, normal bowel sounds. Extremities:No joint swelling, pedal edema, or tenderness noted. Neurological: Alert, oriented 3, no focal deficits. Psychiatric: normal affect, normal mood. Skin: Dry, intact, warm. Normal color. No rashes. - Patient Status Disposition: Home Health Service Condition: Good Functional capacity at discharge: uses cane/walker Overall status at discharge: patient is back to baseline - Discharge Instructions Follow Up With: Demetris Olivier [Primary Care Provider] - - Diet and Activity Activity: increase activity as tolerated Diet: low salt diet
--- NOTE | 2019-03-06 13:32 | Physician Discharge Referral ---
Home Health/Hosp Referral Info Transfer to: Home Health Provider in Charge Post Discharge: PCP - Diagnosis (1) Acute respiratory failure with hypoxia Priority: Primary Status: Resolved (2) Acute diastolic congestive heart failure Priority: Secondary Status: Resolved (3) DVT prophylaxis Priority: Secondary Status: Acute (4) Atrial fibrillation Priority: Secondary Status: Chronic (5) Chronic kidney disease, stage III (moderate) Priority: Secondary Status: Chronic - Respiratory Orders Oxygen / L per min (2L) Smoking Cessation: Smoking cessation has been advised. For more information, call the [place] Tobacco Quit Line at 0-552-UCFO-NOW. - Diet/Nutrition Diet/Nutrition Orders: Cardiac - Activity Activity Orders: Up ad tina, Ambulate - Services Needed Following services are medically necessary services: Nursing, Physical Therapy - Transfer Medications Prescriptions: Carvedilol [Coreg] 3.125 mg PO BID #60 tablet Transmission Status: Pending to [facility] [address] Medications: Digoxin [Lanoxin] 0.125 mg PO DAILY 05/22/18 [History] Donepezil [Aricept] 10 mg PO HS 05/22/18 [History] Finasteride [Proscar] 5 mg PO DAILY 05/22/18 [History] Fluticasone Propionate Nasal [Flonase] 2 spray NS DAILY PRN 05/22/18 [History] Hydrocodone/Acetaminophen [[place] 5-325 Tablet] 1 tab PO Q6H PRN 05/22/18 [History] Simvastatin [Zocor] 80 mg PO HS 05/22/18 [History] ALPRAZolam [Xanax 0.25 MG Tablet] 0.25 mg PO BID PRN 10/19/18 [History] Aspirin [Adult Aspirin Regimen] 81 mg PO QPM 10/19/18 [History] Colchicine [Colcrys] 0.6 mg PO AD PRN 10/19/18 [History] Escitalopram [Lexapro] 10 mg PO DAILY 10/19/18 [History] Warfarin [Coumadin] 2.5 mg PO SUMOTUWETHFR 10/19/18 [History] Warfarin [Coumadin] 5 mg PO SA 10/19/18 [History] Furosemide [Lasix] 40 mg PO BID #60 tablet 10/21/18 [Rx] Albuterol Sulfate [Proair Hfa] 2 puff IH Q4H PRN 03/02/19 [History] Allopurinol [Zyloprim] 300 mg PO DAILY 03/02/19 [History] Fluticasone/Umeclidin/Vilanter [Trelegy Ellipta 100-62.5-25] 1 puff IH DAILY 03/02/19 [History] Ipratropium [place] 2 spray NS BID PRN 03/02/19 [History] Lisinopril [Zestril] 10 mg PO DAILY 03/02/19 [History] Potassium Chloride [Klor-Con 10] 10 meq PO DAILY 03/02/19 [History] Carvedilol [Coreg] 3.125 mg PO BID #60 tablet 03/06/19 [Rx] Allergies/Adverse Reactions: Allergy/AdvReac Type Severity Reaction Status Date / Time No Known Allergies Allergy Verified 10/19/18 13:46 Certification: Further, I certify that my clinical findings support that this patient is homebound (i.e. absences from home require considerable and taxing effort and are for medical reasons or scientology services or infrequently or short duration when for other reasons) because: Homebound Reason: Patient requires assistance of a person or device to safely leave home Attestation: My signature below is to certify that this patient is under my care and that I, or nurse practitioner, or a physician's curriculum assistant working with me, has a [id number] encounter with this patient.
[2019-03-06] MEDS ORDERED: *HR* Warfarin 2.5 MG TABLET PO ONE (18:00)
== END 2019-03-06 15:36 | disposition home health service (06) | DRG 291 ==
LOC: SUATTDRO → 2NENU 14:12 → EMEROOARM 14:12 → SUATTDRO 17:44 → 2NENU 19:10
PROVIDERS: ADMIT Internal Medicine; ATTEND Internal Medicine

== ENCOUNTER 2019-05-15 12:25 | Inpatient (IN) ==
[2019-05-15] MEDS ORDERED: Furosemide 40 MG/4 ML VIAL IVP ONE (12:51)
[2019-05-15 13:35] LABS: Basophils # 0.1 K/mcL (0.0-0.2); Basophils % 0.8 %; Eosinophils # 0.8 K/mcL (0.0-0.6); Eosinophils % 7.4 %; Hematocrit 48.4 % (37.5-50.1); Hemoglobin 14.2 g/dL (12.9-16.9); Immature Granulocytes % 1.1 % (0-4); Lymphocytes # 1.6 K/mcL (0.6-4.6); Lymphocytes % 15.2 %; Mean Corpuscular HGB Conc 29.3 g/dL (31.6-35.5); Mean Corpuscular Hemoglobin 29.5 pg (28.0-33.3); Mean Corpuscular Volume 100.6 fL (83.0-100.0); Mean Platelet Volume 10.5 fL (9.4-12.4); Monocytes # 1.1 K/mcL (0.0-1.3); Monocytes % 10.2 %; Neutrophils # 6.8 K/mcL (1.6-8.9); Platelet Count 194 K/mcL (140-400); Red Blood Count 4.81 M/mcL (4.19-5.50); Red Cell Distribution Width 17.1 % (11.5-14.5); Segmented Neutrophils % 65.3 %; White Blood Count 10.4 K/mcL (4.3-11.1)
[2019-05-15 13:56] LABS: Albumin 3.7 g/dL (3.5-5.7); Albumin/Globulin Ratio 1.4 (1.1-2.2); Bilirubin,Direct 0.2 mg/dL (0.0-0.2); Bilirubin,Indirect 0.5 mg/dL (0.0-1.0); Bilirubin,Total 0.7 mg/dL (0.3-1.0); Globulin 2.6 g/dL (2.4-3.5); Potassium 4.1 mEq/L (3.5-5.1); Total Protein 6.3 g/dL (6.4-8.9); Troponin I 0.11 ng/mL (< 0.04)
[2019-05-15] MEDS ORDERED: Aspirin 325 MG TABLET PO ONE (13:59)
[2019-05-15 15:09] LABS: INR 1.1; Prothrombin Time 12.9 Seconds (9.4-12.1)
[2019-05-15 15:12] LABS: Activated Partial Thrombo Time 34.1 Seconds (26.0-36.0)
[2019-05-15] MEDS ORDERED: *HR* HYDROcodone/Acet 5/325 mg TABLET PO ONE (15:30)
[2019-05-15] MEDS ORDERED: Ondansetron ODT 4 MG TAB.RAPDIS SL PRN (15:31)
[2019-05-15] MEDS ORDERED: Naloxone 0.4 MG/ML INJ IVP PRN (15:31)
[2019-05-15] MEDS ORDERED: *HR* Heparin 5,000 UNIT/ML VIAL IVP PRN ×2 (15:33)
[2019-05-15] MEDS: Heparin 25,000 UNIT/250 ML D5W 25,000 UNIT/250 ML IV.SOLN IVC SCH (16:13)
[2019-05-15] MEDS ORDERED: Fluticasone Propionate Nasal 50 MCG/SPRAY BOTTLE NS PRN (16:59)
[2019-05-15] MEDS ORDERED: tiZANidine 4 MG TABLET PO PRN (16:59)
[2019-05-15] MEDS ORDERED: *HR* HYDROcodone/Acet 5/325 mg TABLET PO PRN (16:59)
[2019-05-15] MEDS ORDERED: Warfarin perPT PO PRN (18:00)
[2019-05-15] MEDS: Aspirin Enteric Coated 81 MG Tablet PO SCH (18:27)
[2019-05-15] MEDS ORDERED: *HR* Warfarin 5 MG TABLET PO ONE (18:45)
[2019-05-15] MEDS: Sucralfate 1 GM TABLET PO SCH ×2 (18:46→21:58)
[2019-05-15] MEDS: Budesonide/Formoterol 80/4.5 1 PUFF INH IH SCH (20:09)
[2019-05-15] MEDS: carvediloL 6.25 MG TABLET PO SCH (21:58)
[2019-05-15] MEDS: Orphenadrine 100 MG TABLET.ER PO SCH (22:19)
[2019-05-16 04:49] LABS: Basophils # 0.1 K/mcL (0.0-0.2); Basophils % 0.8 %; Eosinophils # 0.7 K/mcL (0.0-0.6); Eosinophils % 8.9 %; Hemoglobin 12.9 g/dL (12.9-16.9); Immature Granulocytes % 0.8 % (0-4); Lymphocytes # 1.4 K/mcL (0.6-4.6); Mean Corpuscular Hemoglobin 29.5 pg (28.0-33.3); Mean Corpuscular Volume 98.4 fL (83.0-100.0); Mean Platelet Volume 11.1 fL (9.4-12.4); Monocytes # 0.9 K/mcL (0.0-1.3); Monocytes % 11.1 %; Neutrophils # 4.7 K/mcL (1.6-8.9); Platelet Count 153 K/mcL (140-400); Red Blood Count 4.37 M/mcL (4.19-5.50); Segmented Neutrophils % 60.4 %; White Blood Count 7.8 K/mcL (4.3-11.1)
[2019-05-16 04:56] LABS: INR 1.2; Prothrombin Time 13.6 Seconds (9.4-12.1)
[2019-05-16 05:08] LABS: Calcium 8.3 mg/dL (8.6-10.3); Potassium 3.9 mEq/L (3.5-5.1)
[2019-05-16] MEDS: Orphenadrine 100 MG TABLET.ER PO SCH ×2 (07:54→20:56)
[2019-05-16] MEDS: carvediloL 6.25 MG TABLET PO SCH ×3 (07:55→16:36)
[2019-05-16] MEDS: *HR* Digoxin 0.125 MG TABLET PO SCH (07:55)
[2019-05-16] MEDS: Sucralfate 1 GM TABLET PO SCH ×5 (07:55→20:56)
[2019-05-16] MEDS: Heparin 25,000 UNIT/250 ML D5W 25,000 UNIT/250 ML IV.SOLN IVC SCH (07:55)
[2019-05-16] MEDS: Finasteride 5 MG TABLET PO SCH (07:55)
[2019-05-16] MEDS: Loratadine 10 MG TABLET PO SCH (07:55)
[2019-05-16] MEDS ORDERED: FEXOFENADINE HCL 60 MG PO SCH (09:00)
[2019-05-16] MEDS: Budesonide/Formoterol 80/4.5 1 PUFF INH IH SCH ×2 (11:03→11:23)
[2019-05-16] MEDS: Furosemide 40 MG/4 ML VIAL IVP SCH ×2 (11:20→16:36)
[2019-05-16] MEDS: ALPRAZolam 0.25 MG TABLET PO PRN ×2 (11:20→20:56)
[2019-05-16] MEDS: Tiotropium 18 MCG inhalation IH SCH (11:28)
[2019-05-16] MEDS: Aspirin Enteric Coated 81 MG Tablet PO SCH (16:36)
[2019-05-16] MEDS ORDERED: Warfarin perPT PO PRN (18:00)
[2019-05-16] MEDS: Budesonide/Formoterol 160/4.5 1 PUFF INH IH SCH (19:42)
[2019-05-17] MEDS: Heparin 25,000 UNIT/250 ML D5W 25,000 UNIT/250 ML IV.SOLN IVC SCH (04:16)
[2019-05-17 05:10] LABS: INR 1.3; Prothrombin Time 14.8 Seconds (9.4-12.1)
[2019-05-17 05:28] LABS: BUN/Creatinine Ratio 28 (6-26); Blood Urea Nitrogen 34 mg/dL (8-23); Calcium 8.4 mg/dL (8.6-10.3); Carbon Dioxide 43 mEq/L (23-29); Chloride 99 mEq/L (98-107); Glucose 106 mg/dL (70-105); Osmolality,Calculated 302 (280-300); Potassium 3.7 mEq/L (3.5-5.1); Sodium 142 mEq/L (136-145); eGFR For African Americans > 60 (> 60); eGFR For Non-African Americans 58 (> 60)
[2019-05-17 07:36] VITALS: BP 158/95
[2019-05-17] MEDS: carvediloL 6.25 MG TABLET PO SCH (07:51)
[2019-05-17] MEDS: Loratadine 10 MG TABLET PO SCH (07:51)
[2019-05-17] MEDS: Finasteride 5 MG TABLET PO SCH (07:51)
[2019-05-17] MEDS: Orphenadrine 100 MG TABLET.ER PO SCH (07:51)
[2019-05-17] MEDS: *HR* Digoxin 0.125 MG TABLET PO SCH (07:51)
[2019-05-17] MEDS: Sucralfate 1 GM TABLET PO SCH ×2 (07:51→11:04)
[2019-05-17] MEDS: Tiotropium 18 MCG inhalation IH SCH (10:55)
[2019-05-17] MEDS: Budesonide/Formoterol 160/4.5 1 PUFF INH IH SCH (10:55)
[2019-05-17] MEDS ORDERED: Warfarin perPT PO PRN (18:00)
== END 2019-05-17 14:51 | disposition home or self-care (01) | DRG 280 ==
LOC: SUATTDRO → 2ANU 12:25 → EMEROOARM 12:25 → SUATTDRO 16:22 → 2ANU 16:54
PROVIDERS: ADMIT Internal Medicine; ATTEND Student in an Organized Health Care Education/Training Program